=== PATIENT | male | born 1960 | race Caucasian/White ===

== ENCOUNTER 2018-07-03 11:38 | Emergency (ER) | payer OTHER ==
[~2018-07-03] VITALS: Ht 162.6 cm; Wt 77.1 kg
[~2018-07-03 11:38] MED LIST: ATOR20 PO; CLON.5 PO; DIVA250EC PO; FISH1000 PO; INDERAL XL120 MG PO; METPHE10 PO; PARO30 PO; PROP120ER; QUET100 PO; QUET300 PO
[2018-07-03] MEDS ORDERED: ERGO400 (11:48)
[2018-07-03] MEDS ORDERED: FISH OIL 1,0001 EAC1 PO (11:48)
[2018-07-03] MEDS ORDERED: ZOLP10 PO (11:49)
[2018-07-03 12:28] LABS: BASOPHILS ABSOLUTE AUTO 0.01 K/mm3 (0.00-0.23); BASOPHILS PERCENT AUTO 0 % (0-2); EOSINOPHILS ABSOLUTE AUTO 0.13 K/mm3 (0.00-0.68); EOSINOPHILS PERCENT AUTO 3 % (0-6); Hematocrit 38.6 % (37.0-53.0); Hemoglobin 12.9 g/dL (13.5-17.5); IMMATURE GRAN ABSOLUTE AUTO 0.02 K/mm3 (0.00-0.10); IMMATURE GRAN PERCENT AUTO 1 % (0-1); LYMPHOCYTES ABSOLUTE AUTO 1.73 K/mm3 (0.84-5.20); LYMPHOCYTES PERCENT AUTO 43 % (21-46); MONOCYTES ABSOLUTE AUTO 0.62 K/mm3 (0.16-1.47); MONOCYTES PERCENT AUTO 16 % (4-13); Mean Corpuscular HGB 33.3 pg (26.0-34.0); Mean Corpuscular HGB Conc 33.4 g/dL (31.5-36.5); Mean Corpuscular Volume 100 fL (80-100); Mean Platelet Volume 9.6 fL (9.1-12.4); NEUTROPHILS ABSOLUTE AUTO 1.48 K/mm3 (1.96-9.15); NEUTROPHILS PERCENT AUTO 37 % (41-73); Platelet Count 149 K/mm3 (150-400); RDW Coefficient Variation 13.4 % (11.7-14.2); RDW Standard Deviation 49.4 fL (35.1-46.3); Red Blood Cell Count 3.87 M/mm3 (4.30-5.90); White Blood Cell Count 3.99 K/mm3 (4.00-11.30)
[2018-07-03 12:48] LABS: Alanine Aminotransfer (ALT/SGP 29 U/L (12-78); Albumin, Blood 3.2 g/dL (3.4-5.0); Albumin/Globulin Ratio 0.8 (0.8-1.8); Alk Phos 54 U/L (50-136); Anion Gap 4 mmol/L (6-16); Aspartate Aminotrans (AST/SGOT 27 U/L (12-37); Bilirubin, Total 0.3 mg/dL (0.1-1.0); Blood Urea Nitrogen 17 mg/dL (8-24); Bun/Creatinine Ratio 23.3 (12.0-20.0); CO2, Blood 32 mmol/L (21-32); Calcium, Blood 8.6 mg/dL (8.5-10.1); Chloride, Blood 105 mmol/L (98-108); Creatinine, Blood 0.73 mg/dL (0.60-1.20); Globulin, Blood 3.9 g/dL (2.2-4.0); Glomerular Filtration Rate >60 (60-); Glucose, Blood 88 mg/dL (70-99); Potassium, Blood 4.5 mmol/L (3.5-5.5); Sodium, Blood 141 mmol/L (136-145); Total Protein, Blood 7.1 g/dL (6.4-8.2)
[2018-07-03] MEDS ORDERED: Lotrimin Ultra12 GM TOP (15:00)
== END 2018-07-03 15:00 | disposition home or self-care (01) ==
LOC: ER 11:38
PROVIDERS: Emergency Medicine
DX: R26.81 Unsteadiness on feet (principal); R26.2 Difficulty in walking, not elsewhere classified; W19.XXXA Unspecified fall, initial encounter
CPT/HCPCS: 36415; 70450; 80053; 81000; 85025; 99284-25

== ENCOUNTER 2018-10-03 05:45 | Emergency (ER) | payer OTHER ==
[~2018-10-03] VITALS: Ht 165.1 cm; Wt 65.8 kg
[~2018-10-03 05:45] MED LIST changes: +ERGO400; +FISH OIL 1,0001 EAC1 PO; +Lotrimin Ultra12 GM TOP; +ZOLP10 PO
[2018-10-03 06:53] LABS: BASOPHILS ABSOLUTE AUTO 0.02 K/mm3 (0.00-0.23); BASOPHILS PERCENT AUTO 0 % (0-2); EOSINOPHILS PERCENT AUTO 4 % (0-6); Hemoglobin 13.3 g/dL (13.5-17.5); IMMATURE GRAN ABSOLUTE AUTO 0.04 K/mm3 (0.00-0.10); IMMATURE GRAN PERCENT AUTO 1 % (0-1); LYMPHOCYTES ABSOLUTE AUTO 2.39 K/mm3 (0.84-5.20); LYMPHOCYTES PERCENT AUTO 50 % (21-46); MONOCYTES PERCENT AUTO 10 % (4-13); Mean Corpuscular HGB 33.5 pg (26.0-34.0); Mean Corpuscular HGB Conc 32.4 g/dL (31.5-36.5); Mean Corpuscular Volume 103 fL (80-100); NEUTROPHILS ABSOLUTE AUTO 1.67 K/mm3 (1.96-9.15); NEUTROPHILS PERCENT AUTO 35 % (41-73); Platelet Count 155 K/mm3 (150-400); RDW Coefficient Variation 13.6 % (11.7-14.2); RDW Standard Deviation 52.3 fL (35.1-46.3); Red Blood Cell Count 3.97 M/mm3 (4.30-5.90); White Blood Cell Count 4.82 K/mm3 (4.00-11.30)
[2018-10-03 07:00] LABS: Anion Gap 5 mmol/L (6-16); Blood Urea Nitrogen 15 mg/dL (8-24); CO2, Blood 30 mmol/L (21-32); Calcium, Blood 8.8 mg/dL (8.5-10.1); Chloride, Blood 105 mmol/L (98-108); Creatinine, Blood 0.72 mg/dL (0.60-1.20); Glomerular Filtration Rate >60 (60-); Glucose, Blood 91 mg/dL (70-99); Potassium, Blood 4.2 mmol/L (3.5-5.5); Sodium, Blood 140 mmol/L (136-145)
[2018-10-03 07:14] LABS: Valproic Acid 133.5 ug/mL (50.0-100.0)
== END 2018-10-03 09:52 | disposition home or self-care (01) ==
LOC: ER 05:45
PROVIDERS: Emergency Medicine
DX: G40.909 Epilepsy, unspecified, not intractable, without status epilepticus (principal); T42.6X5A Adverse effect of other antiepileptic and sedative-hypnotic drugs, initial encounter; Z79.899 Other long term (current) drug therapy; Z86.73 Personal history of transient ischemic attack (TIA), and cerebral infarction without residual deficits
CPT/HCPCS: 36415; 70450; 71045; 80048; 80164; 85025; 93005; 93010; 99285-25

== ENCOUNTER → 2018-10-28 | Outpatient (CLI) | payer OTHER ==
[~2018-10-28] MED LIST changes: +CEPH500 PO; +Pyridium100 MG PO
[2018-10-28 20:20] LABS: Source, Urine Voided
[2018-10-28 20:27] LABS: Appearance, Urine Bloody (Clear); Bilirubin, Urine Neg (Neg); Blood, Urine 5+ (Neg); Color, Urine Red (P-Yellow); Glucose Qualitative, Urine Neg (Neg); Ketones, Urine 1+ (Neg); Leukocyte Esterase, Urine 1+ (Neg); Nitrite, Urine Neg (Neg); Protein, Urine 4+ (Neg); Specific Gravity, Urine 1.015 (1.003-1.022); Urobilinogen, Urine NORM (Normal)
[2018-10-28 20:34] LABS: Red Blood Cells, Urine TNTC /hpf (0-2)
[2018-10-28 20:35] LABS: Bacteria Not Seen /hpf; Squamous Epithelial Cells Not Seen /hpf (Few)
== END ==
LOC: LAB 19:35 → LAB SHORT 19:35
PROVIDERS: Nurse Practitioner
DX: R35.0 Frequency of micturition (principal)
CPT/HCPCS: 81001

== ENCOUNTER 2018-10-29 11:04 | Emergency (ER) | payer OTHER ==
[~2018-10-29] VITALS: Ht 162.6 cm; Wt 77.1 kg
[~2018-10-29 11:04] MED LIST changes: -CEPH500 PO; -Pyridium100 MG PO
[2018-10-29 13:10] LABS: BASOPHILS ABSOLUTE AUTO 0.02 K/mm3 (0.00-0.23); BASOPHILS PERCENT AUTO 0 % (0-2); EOSINOPHILS ABSOLUTE AUTO 0.13 K/mm3 (0.00-0.68); EOSINOPHILS PERCENT AUTO 1 % (0-6); Hematocrit 49.8 % (37.0-53.0); Hemoglobin 16.8 g/dL (13.5-17.5); IMMATURE GRAN ABSOLUTE AUTO 0.12 K/mm3 (0.00-0.10); IMMATURE GRAN PERCENT AUTO 1 % (0-1); LYMPHOCYTES ABSOLUTE AUTO 2.41 K/mm3 (0.84-5.20); LYMPHOCYTES PERCENT AUTO 23 % (21-46); MONOCYTES ABSOLUTE AUTO 1.38 K/mm3 (0.16-1.47); MONOCYTES PERCENT AUTO 13 % (4-13); Mean Corpuscular HGB 33.1 pg (26.0-34.0); Mean Corpuscular HGB Conc 33.7 g/dL (31.5-36.5); Mean Corpuscular Volume 98 fL (80-100); Mean Platelet Volume 9.2 fL (9.1-12.4); NEUTROPHILS ABSOLUTE AUTO 6.55 K/mm3 (1.96-9.15); NEUTROPHILS PERCENT AUTO 62 % (41-73); Platelet Count 218 K/mm3 (150-400); RDW Coefficient Variation 12.9 % (11.7-14.2); RDW Standard Deviation 46.7 fL (35.1-46.3); Red Blood Cell Count 5.08 M/mm3 (4.30-5.90); White Blood Cell Count 10.61 K/mm3 (4.00-11.30)
[2018-10-29 13:37] LABS: Alanine Aminotransfer (ALT/SGP 17 U/L (12-78); Albumin, Blood 3.1 g/dL (3.4-5.0); Albumin/Globulin Ratio 0.7 (0.8-1.8); Alk Phos 61 U/L (50-136); Anion Gap 5 mmol/L (6-16); Aspartate Aminotrans (AST/SGOT 14 U/L (12-37); Bilirubin, Total 0.4 mg/dL (0.1-1.0); Blood Urea Nitrogen 18 mg/dL (8-24); Bun/Creatinine Ratio 15.1 (12.0-20.0); CO2, Blood 33 mmol/L (21-32); Calcium, Blood 8.8 mg/dL (8.5-10.1); Chloride, Blood 99 mmol/L (98-108); Creatinine, Blood 1.19 mg/dL (0.60-1.20); Globulin, Blood 4.2 g/dL (2.2-4.0); Glomerular Filtration Rate >60 (60-); Glucose, Blood 107 mg/dL (70-99); Potassium, Blood 5.2 mmol/L (3.5-5.5); Sodium, Blood 137 mmol/L (136-145); Total Protein, Blood 7.3 g/dL (6.4-8.2)
[2018-10-29 15:07] LABS: Source, Urine Catheter
[2018-10-29 15:12] LABS: Bilirubin, Urine Neg (Neg); Blood, Urine 5+ (Neg); Glucose Qualitative, Urine Neg (Neg); Ketones, Urine Neg (Neg); Leukocyte Esterase, Urine 1+ (Neg); Nitrite, Urine Neg (Neg); Protein, Urine 4+ (Neg); Specific Gravity, Urine 1.015 (1.003-1.022); Urobilinogen, Urine NORM (Normal)
[2018-10-29 15:16] LABS: Appearance, Urine Bloody (Clear); Color, Urine Red (P-Yellow)
[2018-10-29 15:17] LABS: Red Blood Cells, Urine TNTC /hpf (0-2)
[2018-10-29 15:18] LABS: Bacteria Few /hpf; Squamous Epithelial Cells Not Seen /hpf (Few)
[2018-10-29] MEDS ORDERED: Pyridium100 MG PO (16:19)
== END 2018-10-29 16:35 | disposition home or self-care (01) ==
LOC: ER 11:04
PROVIDERS: Physician Assistant
DX: N39.0 Urinary tract infection, site not specified (principal); Z79.899 Other long term (current) drug therapy
CPT/HCPCS: 36415; 51701; 74176; 80053; 81001; 83690; 85025; 96374; 99284-25; J1885

== ENCOUNTER 2018-12-01 10:12 | Emergency (ER) | payer OTHER ==
[~2018-12-01] VITALS: Ht 152.4 cm; Wt 79.4 kg
[~2018-12-01 10:12] MED LIST changes: +Pyridium100 MG PO
[2018-12-01] MEDS ORDERED: CEPH500 PO (10:52)
== END 2018-12-01 11:05 | disposition home or self-care (01) ==
LOC: ER 10:12
DX: L03.116 Cellulitis of left lower limb (principal)
CPT/HCPCS: 99282

== ENCOUNTER 2019-05-10 06:28 | Day surgery (SDC) | payer OTHER ==
[~2019-05-10 06:28] MED LIST changes: +CEPH500 PO
[2019-05-10] MEDS ORDERED: QUET25 PO (07:19)
== END 2019-05-10 13:11 | disposition home or self-care (01) ==
LOC: ORSCSDS 06:28
PROVIDERS: Otolaryngology
PROC: 0NR507Z Replacement of Right Temporal Bone with Autologous Tissue Substitute, Open Approach (ICD-10-PCS; principal; 2019-05-10 07:30)
DX: H71.01 Cholesteatoma of attic, right ear (principal); H90.6 Mixed conductive and sensorineural hearing loss, bilateral; I10 Essential (primary) hypertension; Z79.899 Other long term (current) drug therapy
CPT/HCPCS: 82947; 88304; J0171; J1100; J2250; J2405; J2704; J3010; J7120

== ENCOUNTER 2019-05-31 06:28 | Day surgery (SDC) | payer OTHER ==
[~2019-05-31] VITALS: Ht 165.1 cm; Wt 69.2 kg
[~2019-05-31 06:28] MED LIST changes: +QUET25 PO
== END 2019-05-31 08:59 | disposition home or self-care (01) ==
LOC: ORSCSDS 06:28
PROVIDERS: Otolaryngology
PROC: 09B58ZZ Excision of Right Middle Ear, Via Natural or Artificial Opening Endoscopic (ICD-10-PCS; principal; 2019-05-31 07:30)
DX: H71.11 Cholesteatoma of tympanum, right ear (principal); I10 Essential (primary) hypertension; Q90.9 Down syndrome, unspecified; Z79.899 Other long term (current) drug therapy
CPT/HCPCS: J1100; J2250; J2405; J2704; J2710; J3010; J3301; J7120

== ENCOUNTER → 2020-08-09 | Outpatient (CLI) | payer OTHER ==
[2020-08-09 16:19] LABS: Source, Urine Voided
[2020-08-09 18:35] LABS: Bilirubin, Urine Neg (Neg); Blood, Urine Neg (Neg); Glucose Qualitative, Urine Neg (Neg); Ketones, Urine Neg (Neg); Leukocyte Esterase, Urine Neg (Neg); Nitrite, Urine Neg (Neg); Protein, Urine Neg (Neg); Urobilinogen, Urine NORM (Normal)
[2020-08-09 18:40] LABS: Appearance, Urine Clear (Clear); Color, Urine Yellow (P-Yellow)
== END ==
LOC: LAB 15:10 → LAB SHORT 15:10
PROVIDERS: Physician Assistant
DX: R32 Unspecified urinary incontinence (principal)
CPT/HCPCS: 81003

== ENCOUNTER 2020-12-15 10:24 | Emergency (ER) | payer OTHER ==
[~2020-12-15] VITALS: Ht 170.2 cm; Wt 68.0 kg
[2020-12-15 10:56] LABS: BASOPHILS ABSOLUTE AUTO 0.01 K/mm3 (0.00-0.23); BASOPHILS PERCENT AUTO 0 % (0-2); EOSINOPHILS ABSOLUTE AUTO 0.01 K/mm3 (0.00-0.68); EOSINOPHILS PERCENT AUTO 0 % (0-6); Hematocrit 41.8 % (37.0-53.0); IMMATURE GRAN ABSOLUTE AUTO 0.01 K/mm3 (0.00-0.10); IMMATURE GRAN PERCENT AUTO 0 % (0-1); LYMPHOCYTES ABSOLUTE AUTO 1.15 K/mm3 (0.84-5.20); LYMPHOCYTES PERCENT AUTO 25 % (21-46); MONOCYTES ABSOLUTE AUTO 1.19 K/mm3 (0.16-1.47); MONOCYTES PERCENT AUTO 26 % (4-13); Mean Corpuscular HGB 34.1 pg (26.0-34.0); Mean Corpuscular HGB Conc 33.5 g/dL (31.5-36.5); Mean Corpuscular Volume 102 fL (80-100); Mean Platelet Volume 9.4 fL (9.1-12.4); NEUTROPHILS ABSOLUTE AUTO 2.23 K/mm3 (1.96-9.15); NEUTROPHILS PERCENT AUTO 49 % (41-73); Platelet Count 164 K/mm3 (150-400); RDW Standard Deviation 53.1 fL (35.1-46.3)
[2020-12-15 11:14] LABS: Alanine Aminotransfer (ALT/SGP 17 U/L (12-78); Albumin, Blood 2.9 g/dL (3.4-5.0); Albumin/Globulin Ratio 0.7 (0.8-1.8); Alk Phos 55 U/L (50-136); Anion Gap 6 mmol/L (6-16); Aspartate Aminotrans (AST/SGOT 20 U/L (12-37); Bilirubin, Total 0.6 mg/dL (0.1-1.0); Blood Urea Nitrogen 18 mg/dL (8-24); Bun/Creatinine Ratio 19.6 (12.0-20.0); CO2, Blood 27 mmol/L (21-32); Calcium, Blood 8.8 mg/dL (8.5-10.1); Chloride, Blood 104 mmol/L (98-108); Creatinine, Blood 0.92 mg/dL (0.60-1.20); Globulin, Blood 4.2 g/dL (2.2-4.0); Glomerular Filtration Rate >60 (60-); Glucose, Blood 100 mg/dL (70-99); Potassium, Blood 4.4 mmol/L (3.5-5.5); Sodium, Blood 137 mmol/L (136-145); Total Protein, Blood 7.1 g/dL (6.4-8.2); Troponin I <0.015 ng/mL (0.000-0.040)
[2020-12-15] MEDS ORDERED: PROP120ER PO ×2 (12:03→12:14)
[2020-12-15] MEDS ORDERED: FISH OIL 1,2001 EAC7 PO (12:03)
[2020-12-15] MEDS ORDERED: DIVA250ER PO (12:03)
[2020-12-15] MEDS ORDERED: FISH OIL-VIT D1 EACH PO (12:15)
[2020-12-15] MEDS ORDERED: DIVA250EC PO (12:18)
[2020-12-15] MEDS ORDERED: ATOR20 PO (12:19)
[2020-12-15] MEDS ORDERED: PARO30 PO (12:19)
[2020-12-15] MEDS ORDERED: CLON.5 PO (12:20)
[2020-12-15] MEDS ORDERED: METPHE20CR PO (12:20)
[2020-12-15] MEDS ORDERED: ZOLP10 PO (12:21)
[2020-12-15] MEDS ORDERED: THERA-D2000 UNIT PO (12:21)
[2020-12-15] MEDS ORDERED: QUET300 PO (12:21)
[2020-12-15] MEDS ORDERED: Seroquel Xr50 MG PO (12:23)
[2020-12-15] MEDS ORDERED: B-12500 MC2 PO (12:23)
[2020-12-16] MEDS ORDERED: VALP250 PO (13:38)
[2021-02-15] MEDS ORDERED: CEFP200 PO (19:59)
== END 2020-12-15 13:05 | disposition home or self-care (01) ==
LOC: ER 10:24
PROVIDERS: Emergency Medicine
DX: T17.900A Unspecified foreign body in respiratory tract, part unspecified causing asphyxiation, initial encounter (principal); Z79.899 Other long term (current) drug therapy
CPT/HCPCS: 71045; 80053; 83880; 84484; 85025; 87070; 87205; 93005; 93010; 99285-25

== ENCOUNTER 2020-12-15 20:41 | Inpatient (IN) | payer OTHER, MEDICARE ==
[~2020-12-15] VITALS: Ht 167.6 cm; Wt 68.3 kg
[~2020-12-15 20:41] MED LIST changes: +B-12500 MC2 PO; +DIVA250ER PO; +FISH OIL 1,2001 EAC7 PO; +FISH OIL-VIT D1 EACH PO; +METPHE20CR PO; +PROP120ER PO; +Seroquel Xr50 MG PO; +THERA-D2000 UNIT PO
[2020-12-15 21:12] LABS: BASOPHILS ABSOLUTE AUTO 0.01 K/mm3 (0.00-0.23); BASOPHILS PERCENT AUTO 0 % (0-2); EOSINOPHILS ABSOLUTE AUTO 0.01 K/mm3 (0.00-0.68); EOSINOPHILS PERCENT AUTO 0 % (0-6); Hematocrit 35.9 % (37.0-53.0); Hemoglobin 12.2 g/dL (13.5-17.5); IMMATURE GRAN ABSOLUTE AUTO 0.04 K/mm3 (0.00-0.10); IMMATURE GRAN PERCENT AUTO 1 % (0-1); LYMPHOCYTES ABSOLUTE AUTO 1.91 K/mm3 (0.84-5.20); LYMPHOCYTES PERCENT AUTO 27 % (21-46); MONOCYTES PERCENT AUTO 26 % (4-13); Mean Corpuscular HGB 34.3 pg (26.0-34.0); Mean Corpuscular Volume 101 fL (80-100); Mean Platelet Volume 10.5 fL (9.1-12.4); NEUTROPHILS ABSOLUTE AUTO 3.26 K/mm3 (1.96-9.15); NEUTROPHILS PERCENT AUTO 46 % (41-73); Platelet Count 162 K/mm3 (150-400); RDW Coefficient Variation 13.8 % (11.7-14.2); RDW Standard Deviation 51.3 fL (35.1-46.3); Red Blood Cell Count 3.56 M/mm3 (4.30-5.90); White Blood Cell Count 7.03 K/mm3 (4.00-11.30)
[2020-12-15 21:26] LABS: PCO2 Arterial 45.2 mmHg (35-45); PO2 Arterial 53.5 mmHg (80-100); pH Blood Arterial 7.41 (7.35-7.45)
[2020-12-15 21:57] LABS: Source, Urine Catheter
[2020-12-15 21:58] LABS: Bilirubin, Urine Neg (Neg); Blood, Urine 2+ (Neg); Glucose Qualitative, Urine Neg (Neg); Ketones, Urine Neg (Neg); Leukocyte Esterase, Urine 1+ (Neg); Nitrite, Urine Neg (Neg); Protein, Urine Neg (Neg); Urobilinogen, Urine 2+ (Normal)
[2020-12-15 21:59] LABS: Troponin I <0.015 ng/mL (0.000-0.040)
[2020-12-15 22:00] LABS: Alanine Aminotransfer (ALT/SGP 18 U/L (12-78); Albumin, Blood 2.6 g/dL (3.4-5.0); Albumin/Globulin Ratio 0.6 (0.8-1.8); Alk Phos 47 U/L (50-136); Anion Gap 5 mmol/L (6-16); Aspartate Aminotrans (AST/SGOT 18 U/L (12-37); Bilirubin, Total 0.5 mg/dL (0.1-1.0); Blood Urea Nitrogen 20 mg/dL (8-24); Bun/Creatinine Ratio 24.7 (12.0-20.0); CO2, Blood 28 mmol/L (21-32); Calcium, Blood 8.8 mg/dL (8.5-10.1); Chloride, Blood 105 mmol/L (98-108); Creatinine, Blood 0.81 mg/dL (0.60-1.20); Glomerular Filtration Rate >60 (60-); Glucose, Blood 91 mg/dL (70-99); Potassium, Blood 3.8 mmol/L (3.5-5.5); Sodium, Blood 138 mmol/L (136-145); Total Protein, Blood 6.6 g/dL (6.4-8.2)
[2020-12-15 22:11] LABS: Appearance, Urine Clear (Clear); Bacteria Few /hpf; Color, Urine Yellow (P-Yellow); Red Blood Cells, Urine Rare /hpf (0-2); Squamous Epithelial Cells Not Seen /hpf (Few); Transitional Epithelial Cells Few /hpf (0-Rare); White Blood Cells, Urine 0-2 /hpf (0-5)
[2020-12-15 22:17] LABS: Influenza A, PCR NEGATIVE (NEGATIVE); Influenza B, PCR NEGATIVE (NEGATIVE); Resp Syncytial Virus, PCR NEGATIVE (NEGATIVE); SARS-Cov-2 (COVID-19) PCR, MMC NEGATIVE (NEGATIVE)
--- NOTE | 2020-12-16 07:38 | NUR ---
PT TO ICU 10 VIA [facility] WITH ED RN. PT AROUSES TO VERBAL STIMULI, FOLLOWS SOME COMMANDS, L EYE AMBLYOPIA WITH NO PUPILARY REACTION NOTED, R EYE WNL. PT RESISTANT TO NURSING CARE, EASILY AGITATED. PT CAME TO ICU ON 15L PER NRB WITH O2 SATURATIONS> 90%. O2 SATURATIONS BEGAN TO DECLINE TO THE 70'S, PT PLACED ON AIRVO WITHOUT IMPROVEMENT. CALL PLACED TO DR GONZALEZ AND ORDER PLACED FOR BIPAP AND PRECEDEX IF NEEDED. PT TOLERATED BIPAP WELL, O2 SATURATIONS IMPROVED TO >90% FOR SHORT PERIOD OF TIME AND PT BEGAN TO DESAT. CALL PLACED TO DR GONZALEZ AND PT INTUBATED @ 0156, MEDICATED WITH 15mg ETOMIDATE AND 100mg SUCCINYLCHOLINE FOR INTUBATION, PROPOFOL GTT INITIATED AND LEVOPHED STARTED TO MAINTAIN MAPS> 65 (LEVO CURRENTLY ON SB, SEE FLOWSHEET). VENT SET TO AC 16/450 PEEP 10 FIO2 100% PT WITH COPIOUS AMOUNTS OF BLOODY SECRETIONS FROM ETT. OG PLACED, VERIFIED WITH AUSCULTATION AND XRAY. CENTRAL LINE PLACED BY DR GONZALEZ @ APPROX 0215, XRAY READ AND DR GONZALEZ OK'D USE OF CL. QUIÑONES IN PLACE WITH APPROX 2L OF BRIGHT RED OUTPUT. REPORT GIVEN TO LIVAN MURILLO.
--- NOTE | 2020-12-16 07:45 | NUR ---
ASSUMED CARE BEDISDE REPORT FROM TOD MURILLO. PT INTUBATED AND SEDATED. VENT SETTINGS AC 16/450/10/60%. PROPOFOL GTT 30 MCG/KG/MIN. PT RESPONSES TO VERBAL STIMULI, DOES NOT FOLLOW DIRECTIONS. GRIMACES c CARE. PULLS ON RESTRAINTS WHEN STIMULATED. APPEARS TO REST WHEN UNDISTURBED. LUNGS CLEAR THROUGHOUT. MODERATE AMOUNT OF PINK THIN SECRETIONS THROUGH ETT. ABD ROUND, SOFT, BT X 4. PT GRIMACES c PALPATION TO ENTIRE BODY. QUIÑONES PATENT, DRAINING RED URINE c CLOTS TO GRAVITY. DR GANT INSTRUCTED TO HOLD LOVENOX. DR LING AWARE. REDNESS AND WARMTH NOTED TO RLE. VSS. CENTRAL LINE TO RIJ. DRESSING C/D/I. WILL CONTINUE TO MONITOR.
[2020-12-16 09:49] LABS: BASOPHILS ABSOLUTE AUTO 0.01 K/mm3 (0.00-0.23); BASOPHILS PERCENT AUTO 0 % (0-2); EOSINOPHILS ABSOLUTE AUTO 0.05 K/mm3 (0.00-0.68); EOSINOPHILS PERCENT AUTO 1 % (0-6); Hemoglobin 13.4 g/dL (13.5-17.5); IMMATURE GRAN ABSOLUTE AUTO 0.01 K/mm3 (0.00-0.10); IMMATURE GRAN PERCENT AUTO 0 % (0-1); LYMPHOCYTES PERCENT AUTO 29 % (21-46); MONOCYTES ABSOLUTE AUTO 0.85 K/mm3 (0.16-1.47); MONOCYTES PERCENT AUTO 18 % (4-13); Mean Corpuscular HGB 33.8 pg (26.0-34.0); Mean Corpuscular HGB Conc 34.4 g/dL (31.5-36.5); Mean Corpuscular Volume 99 fL (80-100); Mean Platelet Volume 9.5 fL (9.1-12.4); NEUTROPHILS ABSOLUTE AUTO 2.45 K/mm3 (1.96-9.15); NEUTROPHILS PERCENT AUTO 51 % (41-73); Platelet Count 139 K/mm3 (150-400); RDW Coefficient Variation 13.6 % (11.7-14.2); RDW Standard Deviation 50.2 fL (35.1-46.3); Red Blood Cell Count 3.96 M/mm3 (4.30-5.90); White Blood Cell Count 4.77 K/mm3 (4.00-11.30)
[2020-12-16 11:04] LABS: Alanine Aminotransfer (ALT/SGP 12 U/L (12-78); Albumin/Globulin Ratio 0.6 (0.8-1.8); Alk Phos 39 U/L (50-136); Anion Gap 5 mmol/L (6-16); Aspartate Aminotrans (AST/SGOT 18 U/L (12-37); Bilirubin, Total 0.6 mg/dL (0.1-1.0); Blood Urea Nitrogen 19 mg/dL (8-24); Bun/Creatinine Ratio 31.3 (12.0-20.0); CO2, Blood 25 mmol/L (21-32); Calcium, Blood 7.9 mg/dL (8.5-10.1); Chloride, Blood 110 mmol/L (98-108); Creatinine, Blood 0.61 mg/dL (0.60-1.20); Globulin, Blood 3.5 g/dL (2.2-4.0); Glomerular Filtration Rate >60 (60-); Glucose, Blood 82 mg/dL (70-99); Potassium, Blood 3.4 mmol/L (3.5-5.5); Sodium, Blood 140 mmol/L (136-145); Total Protein, Blood 5.5 g/dL (6.4-8.2)
[2020-12-16] MEDS ORDERED: VALP250 PO (13:38)
--- NOTE | 2020-12-16 18:40 | NUR ---
SHIFT SUMMARY PT REMAINS INTUBATED AND SEDATED. VENT SETTINGS AC 16/450/5/30%. PRECEDEX STARTED THIS SHIFT, PROPOFOL GTT. PER DR LING, GOAL FOR PRECEDEX ONLY. LUNGS CLEAR. DECREASED SECRETIONS THROUGH ETT THIS SHIFT. PINK, THIN. TUBE FEEDINGS STARTED, TOLERATING WELL, NO RESIDUALS. QUIÑONES PATENT, CONTINUED TO DRAIN RED URINE c CLOTS, IRRIGATED. CURRENTLY PINK. DR LING AWARE. LEVOPHED GTT STARTED FOR MAP>65. INFUSING AT 2 MCG/MIN. WILL CONTINUE TO MONITOR UNTIL REPORT TO ONCOMING NURSE.
[2020-12-16 18:43] LABS: BASOPHILS ABSOLUTE AUTO 0.01 K/mm3 (0.00-0.23); BASOPHILS PERCENT AUTO 0 % (0-2); EOSINOPHILS ABSOLUTE AUTO 0.03 K/mm3 (0.00-0.68); EOSINOPHILS PERCENT AUTO 1 % (0-6); Hematocrit 39.9 % (37.0-53.0); Hemoglobin 13.9 g/dL (13.5-17.5); IMMATURE GRAN ABSOLUTE AUTO 0.06 K/mm3 (0.00-0.10); IMMATURE GRAN PERCENT AUTO 1 % (0-1); LYMPHOCYTES ABSOLUTE AUTO 1.42 K/mm3 (0.84-5.20); LYMPHOCYTES PERCENT AUTO 23 % (21-46); MONOCYTES ABSOLUTE AUTO 0.97 K/mm3 (0.16-1.47); MONOCYTES PERCENT AUTO 16 % (4-13); Mean Corpuscular HGB 34.3 pg (26.0-34.0); Mean Corpuscular HGB Conc 34.8 g/dL (31.5-36.5); Mean Corpuscular Volume 99 fL (80-100); Mean Platelet Volume 9.8 fL (9.1-12.4); NEUTROPHILS ABSOLUTE AUTO 3.66 K/mm3 (1.96-9.15); NEUTROPHILS PERCENT AUTO 59 % (41-73); Platelet Count 172 K/mm3 (150-400); RDW Coefficient Variation 13.7 % (11.7-14.2); RDW Standard Deviation 50.1 fL (35.1-46.3); Red Blood Cell Count 4.05 M/mm3 (4.30-5.90); White Blood Cell Count 6.15 K/mm3 (4.00-11.30)
[2020-12-16 18:57] LABS: International Normalized Ratio 1.04; Prothrombin Time Results 11.1 Sec (9.7-11.5)
[2020-12-16 19:07] LABS: Anion Gap 5 mmol/L (6-16); Blood Urea Nitrogen 19 mg/dL (8-24); Bun/Creatinine Ratio 26.8 (12.0-20.0); CO2, Blood 24 mmol/L (21-32); Calcium, Blood 8.2 mg/dL (8.5-10.1); Chloride, Blood 111 mmol/L (98-108); Creatinine, Blood 0.71 mg/dL (0.60-1.20); Glomerular Filtration Rate >60 (60-); Glucose, Blood 116 mg/dL (70-99); Potassium, Blood 4.3 mmol/L (3.5-5.5); Sodium, Blood 140 mmol/L (136-145)
--- NOTE | 2020-12-16 19:30 | NUR ---
PATIENT INTUBATED AND SEDATED WITH PROPOFOL 20 MCG AND PRECEDEX 0.3 MCG. LEVOPHED 4 MCG TITRATED FOR HYPOTENSION. ETT IN PLACE WITH VENT AC16, TV 450, PEEP 5 FIO2 30%. OG IN PLACE WITH VITAL HP FEEDING AT 25 CC/HR. BILAT WRIST RESTRAINTS IN PLACE TO PREVENT ACCIDENTAL EXTUBATION DUE TO UNPREDICTABLE SEDATION AND BEHAVIOR.
--- NOTE | 2020-12-16 20:54 | NUR ---
PATIENT VERY RESTLESS AND SHACKING HEAD WITH ORAL CARE AND REPOSITIONING, PROPOFOL INCREASED TO HELP PATIENT GLADIS ETT.
[2020-12-17] MEDS ORDERED: VITAMIN D31000 UNI1 PO (03:40)
[2020-12-17] MEDS ORDERED: MIRALAX17 GM PO (03:41)
[2020-12-17 04:16] LABS: BASOPHILS ABSOLUTE AUTO 0.01 K/mm3 (0.00-0.23); BASOPHILS PERCENT AUTO 0 % (0-2); EOSINOPHILS ABSOLUTE AUTO 0.13 K/mm3 (0.00-0.68); EOSINOPHILS PERCENT AUTO 2 % (0-6); Hematocrit 35.2 % (37.0-53.0); Hemoglobin 12.4 g/dL (13.5-17.5); IMMATURE GRAN ABSOLUTE AUTO 0.04 K/mm3 (0.00-0.10); IMMATURE GRAN PERCENT AUTO 1 % (0-1); LYMPHOCYTES ABSOLUTE AUTO 2.05 K/mm3 (0.84-5.20); LYMPHOCYTES PERCENT AUTO 34 % (21-46); MONOCYTES ABSOLUTE AUTO 0.84 K/mm3 (0.16-1.47); MONOCYTES PERCENT AUTO 14 % (4-13); Mean Corpuscular HGB 34.5 pg (26.0-34.0); Mean Corpuscular HGB Conc 35.2 g/dL (31.5-36.5); Mean Corpuscular Volume 98 fL (80-100); Mean Platelet Volume 9.8 fL (9.1-12.4); NEUTROPHILS ABSOLUTE AUTO 3.03 K/mm3 (1.96-9.15); NEUTROPHILS PERCENT AUTO 50 % (41-73); Platelet Count 142 K/mm3 (150-400); RDW Coefficient Variation 13.5 % (11.7-14.2); RDW Standard Deviation 49.1 fL (35.1-46.3); Red Blood Cell Count 3.59 M/mm3 (4.30-5.90)
[2020-12-17 04:44] LABS: Anion Gap 7 mmol/L (6-16); Blood Urea Nitrogen 23 mg/dL (8-24); Bun/Creatinine Ratio 31.5 (12.0-20.0); CO2, Blood 24 mmol/L (21-32); Calcium, Blood 7.9 mg/dL (8.5-10.1); Chloride, Blood 110 mmol/L (98-108); Creatinine, Blood 0.73 mg/dL (0.60-1.20); Glomerular Filtration Rate >60 (60-); Glucose, Blood 130 mg/dL (70-99); Magnesium, Blood 1.9 mg/dL (1.6-2.4); Phosphorus, Blood 2.4 mg/dL (2.5-4.9); Potassium, Blood 3.5 mmol/L (3.5-5.5); Sodium, Blood 141 mmol/L (136-145)
--- NOTE | 2020-12-17 05:55 | NUR ---
SUMMARY PATIENT REMAINS INTUBATED AND SEDATED, FOR WEAN PATIENT AWAKENS, APPEARS TO HAVE EYE CONTACT, BUT NOT FOLLOWING DIRECTIONS. SEE RT CHARTING FOR WEAN. AFTER WEAN, PROPOFOL BACK ON AT 25 MCG, PRECEDEX 0.2 MCG FOR SEDATION. LEVOPHED TITRATED T/O NIGHT, PATIENT BP VERY SENSITIVE TO TITRATIONS, SEE FLOW SHEET LEVOPHED NOW AT 1.5 MCG. OG WITH TUBE FEEDING WITH VITAL HP, AT GOAL RATE OF 45 CC/HR WITH MIN RESIDUALS T/O NIGHT. QUIÑONES CONTINUES TO DRAIN BLOODY URINE WITH DARK RED CLOTS.
--- NOTE | 2020-12-17 08:30 | NUR ---
ASSUMED CARE / DR GANT: REPORT RECEIVED FROM DEXTER Ellsworth RN. ASSUMED CARE OF THIS PT AT APPROX 0700. ON ASSESSMENT, THE PT IS LIGHTLY SEDATED W/ PROPOFOL AT 25 MCG/KG/MIN & PRECEDEX AT 0.2 MCG/KG/HR. HE WITHDRAWS ALL EXTREMITIIES FROM PAINFUL STIMULUS BUT IS NOT ABLE TO FOLLOW DIRECTIONS. UNSURE OF PT's BASELINE MENTATION/ FUNCTIONING R/T HX DOWNS SYNDROME. LS COARSE IN DAVIE, DIM IN BASES. PT ON VENT W/ SETTINGS AC 16/450/5/30% W/ O2 SATS > 92%. MONITOR SHOWS SB-SR W/ HR 50-60s, LEVOPHED INFUSING AT 1.5 MCG/MIN FOR HYPOTENSION - SEE FLOWSHEET FOR TITRATION OF ALL DRIPS. OGT IN PLACE W/ TUBE FEEDS OF VHP INFUSING AT GOAL RATE OF 45 ML/HR W/ LOW RESIDUALS NOTED - SEE I&O. QUIÑONES PATENT/ DRAINING RED/ PINK URINE W/ COPIOUS AMNTS CLOTS NOTED. SKIN OVERALL CDI. PROVIDER AT BEDSIDE TO EVAL PT THIS AM. NO CHANGES, CONTINUE POC PER SHOT PACKER SERVICE. WILL CONTINUE TO MONITOR & UPDATE NEEDED.
--- NOTE | 2020-12-17 09:25 | NUR ---
DR LING: PROVIDER AT BEDSIDE TO EVAL PT. HE HAS PLACED PROPOFOL DRIP ON STANDBY FOR SEDATION VACATION & IS HOPEFUL TO EXTUBATE PT THIS AM. VICTORIA HELD THIS AM PER CJ R/T CLOTTING/ ESDRAS RED BLOOD NOTED IN URINE, PROVIDER NOTIFIED & STS THAT UROLOGY MAY NEED TO BE CONSULTED IF BLEEDING CONTINUES.
--- NOTE | 2020-12-17 10:31 | NUR ---
UPDATE: DR LING HAS ORDERED A CT UROGRAM & FEELS THAT THE BEST IMAGE WILL BE OBTAINED WHILE PT IS SEDATED W/ PROPOFOL. SEDATION HAS BEEN RESUMED & VENT SETTINGS HAVE BEEN CHANGED BACK TO PRIOR AC SETTINGS OF 16/450/5/30%. THE PT IS AGAIN RESTING QUIETLY. THIS RN HAS SPOKEN TO anywayanyday, & THE PLAN IS FOR CT UROGRAM TO BE COMPLETED AT 1100. HOPE Siddiqui RT, HAS BEEN CONTACTED & WILL BE PRESENT AT BEDSIDE SHORTLY FOR PT TRANSPORT TO[facility]
--- NOTE | 2020-12-17 12:48 | NUR ---
IMAGING / UPDATE: PT TO CT UROGRAM W/ THIS RN, HOPE Siddiqui RT, & ALDO, IMAGING TRANSPORTER. IMAGING COMPLETED AT APPROX 1140 & PT BACK TO ROOM. HE HAS TOLERATED THIS WELL. ONCE BACK IN ROOM, QUIÑONES NOTED TO BE LEAKING SLIGHTLY AROUND MEATUS & HAS BEEN IRRIAGATED W/ STERILE WATER UNTIL CLOTS PASSED & URINE FLOWING.
--- NOTE | 2020-12-17 14:19 | NUR ---
EXTUBATED PT TO ROOM AIR @1412 WITH RT HOPE. SPO2 MAINTAINED ON ROOM AIR >93%. PT ABLE TO VERBALIZE WITH HORSE SOUNDING VOICE. OG TUBE DISCONTINUED AT TIME OF EXTUBATION. PT RESTING IN BED, CALL LIGHT IN REACH. BED ALARM APPLIED.
[2020-12-17 18:20] LABS: Source, Urine Catheter
[2020-12-17 18:24] LABS: Appearance, Urine Cloudy (Clear); Bilirubin, Urine Neg (Neg); Blood, Urine 5+ (Neg); Color, Urine Red (P-Yellow); Glucose Qualitative, Urine Neg (Neg); Ketones, Urine Neg (Neg); Leukocyte Esterase, Urine 2+ (Neg); Nitrite, Urine Neg (Neg); Protein, Urine 4+ (Neg); Specific Gravity, Urine 1.015 (1.003-1.022); Urobilinogen, Urine NORM (Normal)
[2020-12-17 18:33] LABS: Bacteria Few /hpf; Red Blood Cells, Urine TNTC /hpf (0-2); Squamous Epithelial Cells Rare /hpf (Few)
--- NOTE | 2020-12-17 19:35 | NUR ---
SHIFT SUMMARY: NO ACUTE CHANGES SINCE PRIOR UPDATES. PT IS [place] BUT RELATIVELY EASY TO COMMUNICATE WITH. HE USES SMALL PHRASES & ASKS QUESTIONS APPROPRIATELY. LS ARE DIM IN BASES, PT W/ OCCASIONAL MOIST COUGH. O2 SATS > 92% ON RA. MONITOR SHOWS SR W/ HR 70-80s, BP STABLE W/ LEVOPHED OFF SINCE 1546. PT IS HAVING NUMEROUS BROWN LIQUID STLS, ASKS FOR BEDPAN AT TIMES. QUIÑONES REMOVED & LARGER, 16F QUIÑONES HAS BEEN PLACED FOR COPIOUS AMNTS OF BLOOD/CLOTTING NOTED IN URINE & CAUSING OCCLUSION OF SMALLER 14F QUIÑONES THAT WAS IN PLACE. URINE REMAINS PINK/RED IN COLOR. SKIN OVERLL CDI. Q2H REPOSITIONING TO MAINTAIN SKIN INTEGRITY. REPORT GIVEN TO DEXTER Ellsworth RN TO ASSUME CARE.
--- NOTE | 2020-12-17 20:35 | NUR ---
PATIENT AWAKE, SIMPLE CONVERSATION, FOLLOWING SIMPLE DIRECTIONS. LUNG SOUNDS CLEAR AND ON RA. QUIÑONES DRAINING DARK RED URINE WITH CLOTS. INCONT OF LARGE LIQUID BROWN STOOL. HOLDING HIS LEGS VERY STIFF WITH REPOSITIONING IN BED. NEEDING FREQUENT REMINDING TO KEEP LINES AND CORDS IN PLACE. PRECEDEX AT 0.5 MCG TO HELP PATIENT REMAIN CALM. LEVOPHED REMAINS OFF.
[2020-12-18 05:47] LABS: BASOPHILS ABSOLUTE AUTO 0.02 K/mm3 (0.00-0.23); BASOPHILS PERCENT AUTO 0 % (0-2); EOSINOPHILS ABSOLUTE AUTO 0.28 K/mm3 (0.00-0.68); EOSINOPHILS PERCENT AUTO 5 % (0-6); Hematocrit 34.3 % (37.0-53.0); Hemoglobin 11.7 g/dL (13.5-17.5); IMMATURE GRAN ABSOLUTE AUTO 0.07 K/mm3 (0.00-0.10); IMMATURE GRAN PERCENT AUTO 1 % (0-1); LYMPHOCYTES ABSOLUTE AUTO 1.68 K/mm3 (0.84-5.20); LYMPHOCYTES PERCENT AUTO 29 % (21-46); MONOCYTES ABSOLUTE AUTO 0.67 K/mm3 (0.16-1.47); MONOCYTES PERCENT AUTO 11 % (4-13); Mean Corpuscular HGB 33.4 pg (26.0-34.0); Mean Corpuscular HGB Conc 34.1 g/dL (31.5-36.5); Mean Corpuscular Volume 98 fL (80-100); Mean Platelet Volume 9.7 fL (9.1-12.4); NEUTROPHILS ABSOLUTE AUTO 3.14 K/mm3 (1.96-9.15); NEUTROPHILS PERCENT AUTO 54 % (41-73); Platelet Count 158 K/mm3 (150-400); RDW Coefficient Variation 13.6 % (11.7-14.2); RDW Standard Deviation 49.3 fL (35.1-46.3); White Blood Cell Count 5.86 K/mm3 (4.00-11.30)
[2020-12-18 06:02] LABS: Anion Gap 7 mmol/L (6-16); Blood Urea Nitrogen 13 mg/dL (8-24); Bun/Creatinine Ratio 19.6 (12.0-20.0); CO2, Blood 25 mmol/L (21-32); Calcium, Blood 8.3 mg/dL (8.5-10.1); Chloride, Blood 110 mmol/L (98-108); Creatinine, Blood 0.66 mg/dL (0.60-1.20); Glomerular Filtration Rate >60 (60-); Glucose, Blood 82 mg/dL (70-99); Magnesium, Blood 1.9 mg/dL (1.6-2.4); Phosphorus, Blood 3.4 mg/dL (2.5-4.9); Potassium, Blood 3.9 mmol/L (3.5-5.5); Sodium, Blood 142 mmol/L (136-145)
--- NOTE | 2020-12-18 06:57 | NUR ---
SUMMARY PATIENT AWAKE ALL NIGHT. CONFUSED SPEECH, BUT COOPERATIVE, FOLLOWING SIMPLE DIRECTIONS. QUIÑONES DRAINING DARK RED URINE WITH CLOTS, IRRIGATED QUIÑONES WITH 60 CC WATER ONCE DURING THE NIGHT.
--- NOTE | 2020-12-18 08:00 | NUR ---
PT IS AWAKE AND ALERT. HX-DOWN'S SYNDROME AND INTRACRANIAL HEMORRAGE IN THE PAST. PT ROPER, BUT VERY STIFF AND WEAK. FOLLOWS COMMANDS FOR THE MOST PART AND ATTEMPTS TO VE COOPERATIVE. PT OOB TO CHAIR WITH 2 PERSON ASSIST WITH WALKER. LUNGS SLIGHTLY DIMINISHED IN THE BASES. SATS> 93% ON RA. OCCASIONAL, MOIST, NONOPRODUCTIVE COUGH NOTED. PT ABLE TO TAKE PO MEDS WITH SIP OF WATER WITHOUT DIFFLICULTY. QUIÑONES CONTINUES WTIH HEMATURIA AND A FEW SMALL CLOTS. WILL IRRIGATE PRN. INCONTINENT OF MODERATE AMOUNT OF BROWN, LIQUID STOOL-MONTRELL AND CATH CARE COMPLETED PRIOR TO PLACING PT IN THE CHAIR.
--- NOTE | 2020-12-18 09:25 | NUR ---
RADIOLOGY CONTACTED REQUESTING THAT IMAGES BE SENT TO [facility] (CT ABDOMEN/PELVIS.) PER DR. LING REQUEST.
--- NOTE | 2020-12-18 09:53 | NUR ---
ASSISTED PT BACK TO BED. PT INCONTINENT OF MEDIUM BROWN, LIQUID STOOL. MONTRELL CARE AND ATTENDS CHANGED. LINEN CHANGE ALSO COMPLETED. ONCE BACK IN BED, RIJ CENTRAL LINE REMOVED AND CLEAR OCCLUSIVE DRESSING PLACED. PT TOLERATED WELL OVERALL. NO BLEEDING OR HEMATOMA.
--- NOTE | 2020-12-18 11:34 | NUR ---
AWAITING ST AND OT EVALUATION. PT GIVEN SIPS OF WATER FREQUENTLY AND NO SIGNS OF ASPIRATION. HOWEVER, WILL AWAIT ST EVAL TO INITIATE DIET. QUIÑONES CONTINUES WITH HEMATURIA/SOME CLOTS-IRRIGATED X 2 WITH 30 CC STERILE WATER. PT WILL BE DISCHARED WITH QUIÑONES IN PLACE AND HAVE OUTPATIENT UROLOGY EVALUATION-PER DR. LING.
--- NOTE | 2020-12-18 12:50 | NUR ---
NO ACUTE CHANGES. KUSHAL FROM [facility] HERE TO DO EVAL. REPORTS PHONED TO CHIDI CARRANZA IN PREP TO TRANSFER PT TO ROOM 360. PT WILL TRANSFER AFTER SWALLOW EVALUATION DONE.
--- NOTE | 2020-12-18 15:00 | NUR ---
PT TO REMAIN IN ICU 10, UNTIL A SPECIAL CARE UNIT BED AVAILABLE. WHEN SITTING UP IN CHAIR, AND IN BED, PT NOTED TO LIST TO THE LEFT SIDE. PT GIVEN BED BATH AND PARTIAL LINEN CHANGE COMPLETED HE WAS INCONTINENT OF MEDIUM SIZED LIQUID STOOL. VSS. NO NOTED SOB. SWALLOW EVAL HAS BEEN COMPLETED AND DIET ORDERED. QUIÑONES CONTINUES WITH HEMATURIA AND MORE CLOTS THIS AFTERNOON. IRRIGATED WITH A TOTAL OF 100 CC STERILE WATER.
--- NOTE | 2020-12-18 15:12 | NUR ---
DURING PT BATH, NOTED NEW RASH TO ARMS, TORSO, AND THIGHS-FIRST DOSE OF ROCEPHIN GIVEN EARLIER TODAY-SEE EMAR.
--- NOTE | 2020-12-18 15:20 | NUR ---
DR. LING MADE AWARE OF RASH TO TORSO, ARMS, AND THIGHS. NURSE NOTIFY-ORDER TO MONITOR PT WITH NEXT DOSE OF IV ROCEPHIN FOR WORSENING RASH, SOB, WZ, ITCHING ETC.
--- NOTE | 2020-12-18 17:45 | NUR ---
PT AUNT IN FOR VISIT. SHE IS NEXT OF KIN, BUT "NO LONGER" THE DECISION MAKER FOR PT. ACCORDING TO HER, "THE STATE/CUT PRESS OPERATOR" MAKES DECISIONS FOR PT. PT PT AUNT FEELS THAT PT IS MORE CONFUSED THAN NORMAL. SHE STATES THAT HE IS USUALLY ABLE TO RECALL HER NAME AND CARRY ON A SOMEWHAT NORMAL CONVERSATION DESPITE HIS DEVELOPMENTAL DELAY. APPETITE POOR. PT REFUSED DINNER, BUT DID EAT A TOTAL OF 3 PUDDINGS TODAY AND DRINKS SIPS OF LIQUIDS WHENEVER OFFER. PT WILL STATE "THAT'S ENOUGH."
[2020-12-18 20:04] LABS: C DIFFICILE DNA NEGATIVE (Negative)
--- NOTE | 2020-12-18 21:48 | NUR ---
ASSUMPTION OF CARE PT RESTING IN BED, SMILES WHEN STAFF WALK INTO THE ROOM, ORIENTED TO SELF AND LOCATION, TELLS THIS NURSE THAT HE HAS PNEUMONIA. PT DIFFICULT TO UNDERSTAND AT TIMES BUT ANSWERS MOST QUESTIONS APPROPRIATELY. PT COOPERATIVE WITH NURSING CARE BUT DID NOT WANT THIS RN PROVIDE ORAL CARE. VSS, PT ON ROOM AIR. QUIÑONES IN PLACE, WITH BRIGHT RED OUTPUT, SOME CLOTS, IRRIGATED NEEDED. PT MOVES ALL EXTREMETIES, REQUIRES SOME ASSISTANCE WITH REPOSITIONING.
--- NOTE | 2020-12-19 06:39 | NUR ---
SHIFT SUMMARY PT AWAKE FOR MOST OF NIGHT, CALL PLACED TO DR GONZALEZ REGARDING HOME MEDICATION LIST, NEW ORDER FOR BEDTIME MEDS OF SEROQUEL AND AMBIEN. PT UNABLE TO TAKE FULL SEROQUEL DOSE, CRUSHED TABLETS R/T LARGE SIZE AND PT DID NOT LIKE THE TASTE. PT SLEPT FOR APPROX TWO HOURS AFTER SEROQUEL AND AMBIEN ADMINISTRATION. PT CONTINUES TO HAVE BRIGHT RED DRAINAGE FROM QUIÑONES, IRRIGATED x2 THIS SHIFT. PT REMAINS CALM, COOPERATIVE AND PLEASANT.
[2020-12-19 07:53] LABS: BASOPHILS ABSOLUTE AUTO 0.04 K/mm3 (0.00-0.23); BASOPHILS PERCENT AUTO 1 % (0-2); EOSINOPHILS PERCENT AUTO 7 % (0-6); Hematocrit 36.4 % (37.0-53.0); Hemoglobin 12.5 g/dL (13.5-17.5); IMMATURE GRAN ABSOLUTE AUTO 0.12 K/mm3 (0.00-0.10); IMMATURE GRAN PERCENT AUTO 2 % (0-1); LYMPHOCYTES ABSOLUTE AUTO 2.24 K/mm3 (0.84-5.20); LYMPHOCYTES PERCENT AUTO 39 % (21-46); MONOCYTES ABSOLUTE AUTO 0.67 K/mm3 (0.16-1.47); MONOCYTES PERCENT AUTO 12 % (4-13); Mean Corpuscular HGB 34.4 pg (26.0-34.0); Mean Corpuscular HGB Conc 34.3 g/dL (31.5-36.5); Mean Corpuscular Volume 100 fL (80-100); Mean Platelet Volume 9.1 fL (9.1-12.4); NEUTROPHILS PERCENT AUTO 40 % (41-73); Platelet Count 169 K/mm3 (150-400); RDW Coefficient Variation 13.4 % (11.7-14.2); RDW Standard Deviation 49.5 fL (35.1-46.3); Red Blood Cell Count 3.63 M/mm3 (4.30-5.90); White Blood Cell Count 5.77 K/mm3 (4.00-11.30)
[2020-12-19 08:16] LABS: Anion Gap 4 mmol/L (6-16); Blood Urea Nitrogen 12 mg/dL (8-24); Bun/Creatinine Ratio 21.5 (12.0-20.0); CO2, Blood 28 mmol/L (21-32); Calcium, Blood 8.8 mg/dL (8.5-10.1); Chloride, Blood 109 mmol/L (98-108); Creatinine, Blood 0.56 mg/dL (0.60-1.20); Glomerular Filtration Rate >60 (60-); Glucose, Blood 89 mg/dL (70-99); Magnesium, Blood 1.8 mg/dL (1.6-2.4); Phosphorus, Blood 2.9 mg/dL (2.5-4.9); Potassium, Blood 3.8 mmol/L (3.5-5.5); Sodium, Blood 141 mmol/L (136-145)
--- NOTE | 2020-12-19 09:47 | NUR ---
Mayank refused his breakfast, and spat out the pudding with a whole pill in it this morning. He did take the pill crushed in applesauce, and drank one sip of water afterwards. Refused further oral intake. Mo catheter draining dark red urine; noted with Dr. Moore this morning. CBC is noted after am draw; H& H are stable from yesterday. Irrigated with total of 60cc sterile water, and light pink urine drained out, only one small clot noted. Doctor states looking into urology consultation and possibly transfer.
--- NOTE | 2020-12-19 11:03 | NUR ---
Continues to have dark red urine.
--- NOTE | 2020-12-19 11:07 | NUR ---
Call to Dr. Moore regarding pt's home medications which are on his home med rec but not currently ordered. The doctor is going to look them over and order what is needed. Also updated doctor on pt's inability to take flomax since the pt's medications are needing to be crushed to be taken, and flomax cannot be opened and sprinkled.
--- NOTE | 2020-12-19 15:26 | NUR ---
Pt repositioned in the recliner chair. He is still only taking sips of water, 1-2 at a time, and then refusing by saying "NO!", turning head away, and not opening his mouth for oral intake. This time he was able to swallow two sips of water without coughing, but still refused further po intake. Urine continues to be dark red, occasional clots, and requiring irrigation 2-3 x per shift. Call to Dr. Moore with concern for dehydration with pt refusing oral intake and no back up IVF except for Rocephin.
--- NOTE | 2020-12-19 17:21 | NUR ---
Telephone report given to Felix Draper RN at this time. Transferring pt to 313-2
--- NOTE | 2020-12-19 18:39 | NUR ---
ICU 10 TRANSFER TO RM [id number] REPORT RECIEVED. PT ARRIVE TO RM APPROX 1730, TRANSFER w SLIDER SHEET BED TO BED. HE IS VERY STIFF, FEARFUL w TRANSFER, TURNING IN BED. REASSURANCE PROVIDED. MINIMAL VERBAL, HX DOWNS SYNDROME/CHILDLIKE PER REPORT. NO S/S PAIN OR DISCOMFORT. QUIÑONES CATH DRNG BLOODY RED URINE w CLOTS. LR INFUSING @ 125 ML/HR VIA R AC IV SITE. NEEDLEMAKER ATTEMPT TO ASSIST HIM w PUREE DINNER HOWEVER PT REFUSES, BECOMES SOMEWHAT AGITATED w ENCOURAGEMENT. ASSISTED HIM w TV, SEEMS CONTENT. BED ALARM IN USE.
--- NOTE | 2020-12-19 21:49 | NUR ---
PT MEDS WERE CRUSHED AND PUT IN APPLESAUCE, SEVERAL ATTEMPTS MADE TO GET PT TO TAKE MEDICATION, PT TOOK ONE BITE AND SPIT OUT ONTO GOWN. PT WAS REPOSITIONED, SMALL BM NOTED AND ATTENDS CHANGED, PT HAS BLE EDEMA PAS STOCKINGS ON, WILL MONITOR FOR ADVERSE AFFECTS. QUIÑONES CATH DRAINING RED WITH FEW CLOTS VISIBLE AT THIS TIME. PT FLOATED ON PILLOWS, BED ALARM ON.
[2020-12-20 05:16] LABS: Hematocrit 30.7 % (37.0-53.0); Hemoglobin 10.6 g/dL (13.5-17.5); Mean Corpuscular HGB 34.6 pg (26.0-34.0); Mean Corpuscular HGB Conc 34.5 g/dL (31.5-36.5); Mean Corpuscular Volume 100 fL (80-100); Mean Platelet Volume 8.9 fL (9.1-12.4); NRBC ABSOLUTE 0.02 K/mm3 (0.00-0.02); NRBC Auto 0.3 /100 WBC (0.0-0.2); Platelet Count 190 K/mm3 (150-400); RDW Coefficient Variation 13.4 % (11.7-14.2); RDW Standard Deviation 49.6 fL (35.1-46.3); Red Blood Cell Count 3.06 M/mm3 (4.30-5.90); White Blood Cell Count 5.83 K/mm3 (4.00-11.30)
[2020-12-20 05:44] LABS: Anion Gap 6 mmol/L (6-16); Blood Urea Nitrogen 13 mg/dL (8-24); Bun/Creatinine Ratio 21.7 (12.0-20.0); CO2, Blood 26 mmol/L (21-32); Calcium, Blood 8.2 mg/dL (8.5-10.1); Chloride, Blood 110 mmol/L (98-108); Glomerular Filtration Rate >60 (60-); Glucose, Blood 81 mg/dL (70-99); Potassium, Blood 3.9 mmol/L (3.5-5.5); Sodium, Blood 142 mmol/L (136-145)
--- NOTE | 2020-12-20 06:14 | NUR ---
PT HAS DOWNS SYNDROME, WOULD NOT TAKE CRUSHED MEDS IN APPLESAUCE FROM RN BUT SPIT OUT. QUIÑONES CATH DRAINING RED URINE CLOTS OBSERVED, BLADDERSCAN PERFORMED, NO BLADDER RETENTION NOTED. PT DOES HAVE LOWER BLE EDEMA. SLEPT VERY LITTLE THIS SHIFT.
--- NOTE | 2020-12-20 10:35 | NUR ---
BLADDER IRIGATION QUIÑONES FIRST EMPTIED OF 260 MLS RED/FLYNN URINE. QUIÑONES THEN HAND IRRIGATED WITH STERILE WATER 50 MLS X2. THE CATHETER IRRIGATED AND ASPIRATED VERY EASILY. THE FIRST 50 ML ASPIRATE WAS PINK WITH 2 TINY CLOTS. THE 2ND 50 ML ASPIRATE HAD A SLIGHT PINK TINGE, NO CLOTS. HE TOLERATED IT WELL. NEW QUIÑONES BAG ATTACHED.
--- NOTE | 2020-12-20 11:33 | NUR ---
AM ASSESSMENT PT IS AWAKE, RESPONDS TO NAME HOWEVER DOES NOT ANSW QUESTIONS OR FOLLOW COMMANDS. NO S/S OF PAIN OR DISCOMFORT UNLESS TURNED OR REPOSITIONED THEN GRIMACES & STIFFENS, SEEMS FEARFUL. HE WOULD NOT EAT BREAKFAST THIS AM. WAS ABLE TO GET HIM TO TAKE AM MEDS CRUSHED w VANILLA PUDDING. SPOKE w PT'S CAREGIVER WHO STATE HE USUALLY HAS GOOD APPETITE & ABLE TO FEED HIMSELF. CAREGIVER WILL BE IN THIS AFTERNOON. STATE PT IS VERY HABEMATOLEL HOWEVER ABLE TO READ SO WE HAVE ATTEMPTED TO COMMUNICATE IN THAT MANNER. COMPLETE BEDBATH PROVIDED. MED LOOSE STOOL THIS AM. URINE DRNG VIA QUIÑONES CATH BLOODY THIS AM, CATH IRRIGATED PER DR GANT, 1 MED CLOT OUT.
--- NOTE | 2020-12-20 17:14 | NUR ---
PM ASSESSMENT PT'S CAREGIVER JOHN IN THIS AFTERNOON. PT RECOGNIZE HER, RESPONDS WITH SMILES. HE COMMUNICATES MINIMALLY. PROVIDED CAREGIVER UPDATE. SHE ASSISTED US TO GIVE AFTERNOON MEDS w BITES OF PUDDING, COAXED PT TO TAKE A FEW DRINKS OF WATER. SHE STATE THIS IS NOT HIS USUAL GOOD APPETITE. PT ABLE TO MAKE KNOWN THAT HIS THROAT IS SORE. HE CONTINUES WEAK, HANDS & FEET PUFFY/EDEMATOUS 2+. IVF HAVE FINISHED, IV SL @ THIS TIME. QUIÑONES CATH PATENT, URINE HAS INCREASINGLY CLEARED THIS AFTERNOON HOWEVER PINK w OCCASIONAL CLOT. PT HAS BEEN SITTING UP IN BED T/O DAY WATCHING TV, APPEARS HAPPY/CONTENT. VSS.
--- NOTE | 2020-12-20 22:34 | NUR ---
2129 PT SPIT OUT MEDS AND REFUSED TO TAKE ANYMORE. MED CRUSHED IN APPLESAUCE. PT ALSO REFUSING TO DRINK ANY PO FLUIDS.
--- NOTE | 2020-12-21 05:19 | NUR ---
SUMMARY PT SPIT OUT HIS MEDS AND REFUSED TO DRINK FLUIDS. PT REQUIRED BLADDER IRRIGATION WITH SMALL CLOTS NOTED. QUIÑONES DRAINING PINK URINE W/ CLOTS NOTED. PT HAS BEEN AWAKE FOR MOST OF SHIFT. PT HAD A NOTED LOOSE BM. PT REMAINS STIFF AND NOTED EDEMA IN LEGS AND ARMS. PT CURRENTLY WATCHING TV AND IN NO DISTRESS. CALL LIGHT IN REACH AND BED ALARM ON.
[2020-12-21 08:15] LABS: Hematocrit 32.4 % (37.0-53.0); Hemoglobin 11.1 g/dL (13.5-17.5); Mean Corpuscular HGB 34.4 pg (26.0-34.0); Mean Corpuscular HGB Conc 34.3 g/dL (31.5-36.5); Mean Corpuscular Volume 100 fL (80-100); Mean Platelet Volume 9.4 fL (9.1-12.4); Platelet Count 245 K/mm3 (150-400); RDW Coefficient Variation 13.5 % (11.7-14.2); RDW Standard Deviation 49.6 fL (35.1-46.3); Red Blood Cell Count 3.23 M/mm3 (4.30-5.90); White Blood Cell Count 6.06 K/mm3 (4.00-11.30)
--- NOTE | 2020-12-21 17:31 | NUR ---
PT AOX1 AND HAS BEEN FAIRLY COOPERATIVE OF CARE. PT IS INCONTENT OF STOOL. PT'S QUIÑONES LOOKED IMPROVE AT THE START OF SHIFT. THIS CHANGED ABOUT MID DAY AND QUIÑONES HAS BEEN FLUSHED X4 TO PREVENT CLOTS. URINE HAS INCREASED IN REDNESS AGAIN. PT STAYS IN BED AND WAS BETTER AT TAKING PILLS TODAY. WILL CONTINUE TO MONITOR.
[2020-12-22 05:24] LABS: Hematocrit 34.6 % (37.0-53.0); Hemoglobin 11.4 g/dL (13.5-17.5); Mean Corpuscular HGB 33.6 pg (26.0-34.0); Mean Corpuscular HGB Conc 32.9 g/dL (31.5-36.5); Mean Corpuscular Volume 102 fL (80-100); Mean Platelet Volume 9.1 fL (9.1-12.4); Platelet Count 219 K/mm3 (150-400); RDW Coefficient Variation 13.6 % (11.7-14.2); RDW Standard Deviation 50.1 fL (35.1-46.3); Red Blood Cell Count 3.39 M/mm3 (4.30-5.90); White Blood Cell Count 6.08 K/mm3 (4.00-11.30)
--- NOTE | 2020-12-22 05:37 | NUR ---
SUMMARY PT QUIÑONES REQUIRED MULTIPLE MANUAL BLADDER IRRIGATION. PT HAD SMALL BLOOD CLOTS NOTED DURING IRRIGATION. PT QUIÑONES DRAINING CRANBERRY COLOR URINE. PT WAS AGREEABLE TO TAKING MEDS THIS SHIFT. PT HAS SLEPT T/O SHIFT. PT CURRENTLY SLEEPING IN NO DISTRESS. CALL LIGHT IN REACH BED ALARM ON.
[2020-12-22 05:55] LABS: Anion Gap 8 mmol/L (6-16); Blood Urea Nitrogen 13 mg/dL (8-24); Bun/Creatinine Ratio 23.7 (12.0-20.0); CO2, Blood 25 mmol/L (21-32); Calcium, Blood 8.2 mg/dL (8.5-10.1); Chloride, Blood 111 mmol/L (98-108); Creatinine, Blood 0.55 mg/dL (0.60-1.20); Glomerular Filtration Rate >60 (60-); Glucose, Blood 77 mg/dL (70-99); Potassium, Blood 3.8 mmol/L (3.5-5.5); Sodium, Blood 144 mmol/L (136-145)
--- NOTE | 2020-12-22 17:12 | NUR ---
PT AOX1 AND COOPERATIVE OF CARE. PT SLEEP MOST OF THE MORNING. PT TOOK MEDICATION, BUT THEN FELL RIGHT BACK TO SLEEP. PT HAS HAD HIS QUIÑONES FLUSHED X 5 WITH A TOTAL OF 300 MLS. NO RESISTANCE AND IT ALL FLOWED OUT CRANBERRY RED IN COLOR. DR GANT WAS NOTIFIED AND HE STATED HE WILL CONSULT WEDNESDAY WITH UROLOGY DOCTOR. BED ALARM IN IS PLACE AND PT IS CHECKED ON FREQUENTLY HE DOES NOT USE CALL LIGHT. WILL CONTINUE TO MONITOR.
[2020-12-23 04:40] LABS: Hematocrit 34.8 % (37.0-53.0); Hemoglobin 11.6 g/dL (13.5-17.5); Mean Corpuscular HGB Conc 33.3 g/dL (31.5-36.5); Mean Corpuscular Volume 102 fL (80-100); Mean Platelet Volume 8.8 fL (9.1-12.4); Platelet Count 227 K/mm3 (150-400); RDW Coefficient Variation 13.9 % (11.7-14.2); RDW Standard Deviation 50.8 fL (35.1-46.3); Red Blood Cell Count 3.41 M/mm3 (4.30-5.90); White Blood Cell Count 6.05 K/mm3 (4.00-11.30)
[2020-12-23 04:54] LABS: Anion Gap 3 mmol/L (6-16); Blood Urea Nitrogen 16 mg/dL (8-24); CO2, Blood 30 mmol/L (21-32); Calcium, Blood 8.5 mg/dL (8.5-10.1); Chloride, Blood 112 mmol/L (98-108); Creatinine, Blood 0.64 mg/dL (0.60-1.20); Glomerular Filtration Rate >60 (60-); Glucose, Blood 85 mg/dL (70-99); Potassium, Blood 4.1 mmol/L (3.5-5.5); Sodium, Blood 145 mmol/L (136-145)
--- NOTE | 2020-12-23 05:51 | NUR ---
SUMMARY PT HAD HIS SEROQUEL AND AMBIEN DOSE LOWERED. DR CUNNINGHAM WAS CALLED AND INFORMED OF PT SLEEPING ALL NIGHT BEFORE AND MOST OF DAY. DR CUNNINGHAM ORDERED REDUCED DOSES. PT TOOK MEDS AND HAS BEEN SLEEPING WELL. PT CONTINUES TO NEED MANUAL BLADDER IRRIGATION W/ BLOOD CLOTS BEING REMOVED. PT QUIÑONES IS DRAINING CRANBERRY URINE. PT HAD NO OTHER ACUTE ISSUES NOTED. PT CURRENTLY SLEEPING SOUNDLY AND BREATHING EASY. PT REPOSITIONED Q2 HRS. CALL LIGHT IN REACH AND BED ALARM ON.
--- NOTE | 2020-12-23 10:27 | NUR ---
UPDATE TO LONG-TERM UPDATE GIVEN TO JOHN JURADO WITH [facility] LONG-TERM.
--- NOTE | 2020-12-23 16:35 | NUR ---
SHIFT SUMMARY PT CONTINUES TO HAVE CRANBERRY COLORED URINE WITH CLOTS. FLUSH OF QUIÑONES WITH STERILE WATER HAS BEEN DONE TWICE SO FAR THIS SHIFT. CLOTS REVEALED AFER EACH FLUSH. PT BLADDER SCANED TO BE SURE THAT BLADDER IS EMPTYING. 0 CC REVEALED. PT UP TO RECLINER THIS AFTERNOON. APPETITE IMPROVED COMPARED TO THIS AM. PT TOLERATING MEDS CRUSHED IN APPLESAUCE & A FEW WHOLE MEDS ONE AT A TIME FOR MEDS THAT CANNOT BE CRUSHED. NO ACUTE CHANGES IN ASSESSMENT AT THIS TIME. JOHN, PTS CAREGIVER, UPDATED ON PLAN ON CARE. DR. GANT INFORMED THAT PT CAREGIVERS ARE NOT ABLE TO CARE FOR OR MAINTAIN A QUIÑONES CATHETER. PT CURRENTLY UP IN CHAIR, WATCHING TV & TALKING TO SELF. VS REVIEWED. CALL LIGHT IN REACH.
--- NOTE | 2020-12-24 04:43 | NUR ---
SHIFT SUMMARY- PT. ALERT TO SELF W/HX OF DOWN SYNDROME. HAD NO COMPLAINTS OF PAIN OR DISCOMFORT DURING THE NIGHT. PT. HAS QUIÑONES CATHETER IN PLACE, PATENT AND DRAINING. NOTED HEMATURIA WITH CLOTS, BLADDER IRRIGATION DONE PER ORDER MULTIPLE TIMES DURING THE NIGHT, TOLERATED WELL. CLOTS WITH EVERY IRRIGATION. PT. ALSO NOTED TO HAVE REDNESS/EXCORIATION TO GLUTEAL FOLDS THAT IS PAINFUL WITH ATTENDS CHANGE. BARRIER CREAM APPLIED WITH EVERY CHANGE. APPEARED TO HAVE RESTED COMFORTABLY T/O THE NIGHT, NO APPARENT DISTRESS NOTED. VSS. CALL LIGHT WITHIN REACH AND SIDE RAILS UPX2. WILL CONT TO MONITOR.
[2020-12-24 04:46] LABS: Hematocrit 35.5 % (37.0-53.0); Hemoglobin 11.8 g/dL (13.5-17.5); Mean Corpuscular HGB 34.3 pg (26.0-34.0); Mean Corpuscular HGB Conc 33.2 g/dL (31.5-36.5); Mean Corpuscular Volume 103 fL (80-100); Platelet Count 228 K/mm3 (150-400); RDW Standard Deviation 51.8 fL (35.1-46.3); Red Blood Cell Count 3.44 M/mm3 (4.30-5.90); White Blood Cell Count 6.83 K/mm3 (4.00-11.30)
[2020-12-24 05:00] LABS: Anion Gap 4 mmol/L (6-16); Blood Urea Nitrogen 23 mg/dL (8-24); CO2, Blood 29 mmol/L (21-32); Calcium, Blood 8.3 mg/dL (8.5-10.1); Chloride, Blood 112 mmol/L (98-108); Creatinine, Blood 0.64 mg/dL (0.60-1.20); Glomerular Filtration Rate >60 (60-); Glucose, Blood 91 mg/dL (70-99); Potassium, Blood 4.6 mmol/L (3.5-5.5); Sodium, Blood 145 mmol/L (136-145)
--- NOTE | 2020-12-24 16:02 | NUR ---
SHIFT SUMMARY PT QUIÑONES CATHETER FLUSHED 3 TIMES SO FAR THIS SHIFT. CRANBERRY COLORED URINE WITH CLOTS PRODUCED AFTER EACH TIME. OTHERWISE QUIÑONES CATH PATENT & DRAINING. CATH CARE COMPLETED TODAY. PT UP TO RECLINER TODAY FOR LUNCH. APPETITE IMPROVED. 2 BMS SO FAR THIS SHIFT. MIRALAX HELD TODAY. GLUTEAL FOLD RED & RAW FROM STOOLS. BARRIER CREAM APPLIED. MONTRELL BOTTLE USED FOR CLEANING AND HAS HELPS WITH PAIN/IRRIATION OF THE AREA. PT TOLERATING REPOSITIONS WELL. OVERALL VERY COOPERATIVE & PLEASANT. MOSTLY TALKS TO HIMSELF IN ROOM WITH GARBLED SPEECH. CARE MANAGEMENT CONSULTED FOR HELP WITH DC PLAN AND POSSIBLE UROLOGY CONSULT OUT OF TOWN. NO OTHER ACUTE CHANGES IN ASSESSMENT AT THIS TIME. VS REVIEWED. CALL LIGHT IN REACH. PT RESTING IN BED AT THIS TIME. MARKETING DEVELOPMENT SPECIALIST, JOHN UPDATED TODAY ON PT CONDITION.
--- NOTE | 2020-12-24 22:45 | NUR ---
ASSUMPTION OF CARE. ALERT ORIENTED TO SELF, GARBLED SPEECH AT TIMES. IS VERY HAPPY, LOVES CARTOONS, AND TALKING ABOUT THEM. FOLLOWS DIRECTIONS. LUNG SOUNDS ARE DIMINISHED BUT CLEAR. NO COUGHING NOTED. STATES HE FEELS GOOD. TOOK MEDS IN APPLESAUCE. CATH WAS LEAKING, FLUSHED WITH 60ML OF STERILE WATER, GOT TWO MEDIUM CLOTS OUT, CATH IS NOW FLOWING YELLOW TO PINK URINE. LOOSE STOOLS WITH EXCORIATION TO BOTTOM AND UP UNDER TESTICLES. HURTS WHEN WE CLEAN HIM, APPLYING BARRIER CREAM EVERY TIME FOR HEALING AND KEEPING HIS BOTTOM FREE FROM FETUS. CALL LIGHT IS IN REACH, BED ALARM IS ON.
[2020-12-25 05:57] LABS: Hematocrit 34.4 % (37.0-53.0); Hemoglobin 11.6 g/dL (13.5-17.5); Mean Corpuscular HGB 34.7 pg (26.0-34.0); Mean Corpuscular HGB Conc 33.7 g/dL (31.5-36.5); Mean Corpuscular Volume 103 fL (80-100); Mean Platelet Volume 9.3 fL (9.1-12.4); Platelet Count 217 K/mm3 (150-400); RDW Coefficient Variation 13.8 % (11.7-14.2); RDW Standard Deviation 51.6 fL (35.1-46.3); Red Blood Cell Count 3.34 M/mm3 (4.30-5.90); White Blood Cell Count 6.62 K/mm3 (4.00-11.30)
[2020-12-25 06:14] LABS: International Normalized Ratio 0.93
[2020-12-25 06:38] LABS: Alanine Aminotransfer (ALT/SGP 18 U/L (12-78); Albumin, Blood 2.1 g/dL (3.4-5.0); Albumin/Globulin Ratio 0.7 (0.8-1.8); Alk Phos 44 U/L (50-136); Anion Gap 5 mmol/L (6-16); Aspartate Aminotrans (AST/SGOT 18 U/L (12-37); Bilirubin, Total 0.2 mg/dL (0.1-1.0); Blood Urea Nitrogen 17 mg/dL (8-24); Bun/Creatinine Ratio 28.3 (12.0-20.0); CO2, Blood 29 mmol/L (21-32); Calcium, Blood 8.3 mg/dL (8.5-10.1); Chloride, Blood 107 mmol/L (98-108); Globulin, Blood 3.1 g/dL (2.2-4.0); Glomerular Filtration Rate >60 (60-); Glucose, Blood 78 mg/dL (70-99); Potassium, Blood 4.7 mmol/L (3.5-5.5); Sodium, Blood 141 mmol/L (136-145); Total Protein, Blood 5.2 g/dL (6.4-8.2)
--- NOTE | 2020-12-25 07:35 | NUR ---
SHIFT SUMMARY: AO TO SELF, MENTALLY DELAYED, CHILD LIKE BEHAVIOR. LOVES TO WATCH HIS CARTOONS. FOLLOWS SOME DIRECTIONS. LUNG SOUNDS WERE CLEAR WITH DIMINISHED BASES, NO COUGH OR CONGESTION. TAKES MEDS CURSHED IN APPLESAUCE OR 1 AT A TIME IN APPLESAUCE. QUIÑONES CATHETER WITH RED YELLOW URINE, BLOOD CLOTS MEDIUM SIZE. FLUSHED CATHTER TWICE THIS SHIFT WITH MEDIUM CLOTS ON RETURN. HE DID HAVE SOFT LOOSE STOOL A COUPLE OF TIME. HE DOES NOT LIKE HIS BOTTOM TO BE CHANGED DUE TO EXCORIATION AND BLEEDING. APPLIED BARRIER CREAM AND POWDER ALTERNATING THEM. VS WNL, AFEBRILE. NO OTHER ACUTE CHANGE TO NOTE, CALL LIGHT IN REACH.
--- NOTE | 2020-12-25 18:45 | NUR ---
SHIFT SUMMARY PT AWAKE AND WATCHING CARTOONS THIS AM. TALKING TO HIMSELF AND THE TV. PT YELLS OUT AT THE TV AND IMAGINARY PEOPLE. INCONTINENT OF BOWELS WITH LOOSE, FREQUENT STOOLS ALL DAY LONG. IMODIUM OBTAINED AND GIVEN WELL OINTMENTS FOR BOTTOM. PT'S BUTTOCKS IS VERY EXCORIATED AND WEEPING. FREQUENT CHANGES DONE TO ATTENDS. QUIÑONES TO GRAVITY WITH LIGHT CRANBERRY COLORED URINE. OCCASSIONAL CLOTS IN TUBING AND SOMETIMES OCCLUDING DRAINAGE. PT YELLS OUT THAT HE HAS TO "PEE". CATHETER FLUSHED NEEDED WITH CLOTS FLOWING OUT. URINE MAY BE CLEARING SOME. PT IS ALSO A FEEDER, EATING WELL WITH ASSIST. TAKES MEDS WHOLE IN APPLESAUCE. NO C/O PAIN, EXCEPT FOR CLEANING EXCORIATED BOTTOM. LUNGS CTA. BED ALARM ON FOR SAFETY. CALL LT IN REACH.
--- NOTE | 2020-12-25 22:11 | NUR ---
ASSUMPTION OF CARE. LIGIA HAS BEEN VERYT TALKATIVE YELLING AT HIS REFELCTION IN THE WINDOW. HE STILL FOLLOWS DIRECTION BUT IS MORE ACTIVE THEN YESTERDAY. HE HAS TRIED TO GET UP OUT OF BED SEVERAL TIMES, FOUND HALF HANGING ON THE BED SEVERAL TIMES WITH ALARM SOUNDING. ENCOURAGED HIM TO STAY IN BED. CATHETER FLUSHED GOT 1 SMAL CLOT OUT, URINE IS MORE PINK COLOR TODAY. NO LOOSE STOOL SO FAR. BARRIER CREAM APPLIED TO BOTTOM. LUNGS ARE CLEAR. PAIN ONLY WITH DIAPER CHANGE. CALL LIGHT IS IN REACH, BED ALARM IS ON.
--- NOTE | 2020-12-26 05:06 | NUR ---
SHIFT SUMMARY: AO TO SELF, FOLLOWS DIRECTION, WAS VERY TALKATIVE AND ACTIVE AT START OF SHIFT. ATTEMPTED TO GET OUT OF BED ON SEVERAL OCCATIONS. TAKES MEDS IN APPLESAUCE ONE AT A TIME. CATHETER FLUSHED X2 60ML EACH, GOT SAME ON RETURN, NO BLOOD CLOTS THIS SHIFT, URINE STILL PINKISH COLOR. 1 SMEAR OF A STOOL LAST NIGHT, BOTTOM IS VERY RAW, EXCORIATION, APPLIED CREAMS. VS WNL. NO PAIN OR DISCOMFORT. SLEPT WELL T/O NIGHT. BED ALARM ON, CALL LIGHT IN REACH.
[2020-12-26 05:25] LABS: Hematocrit 36.5 % (37.0-53.0); Hemoglobin 12.3 g/dL (13.5-17.5); Mean Corpuscular HGB 34.4 pg (26.0-34.0); Mean Corpuscular HGB Conc 33.7 g/dL (31.5-36.5); Mean Corpuscular Volume 102 fL (80-100); Mean Platelet Volume 9.4 fL (9.1-12.4); Platelet Count 202 K/mm3 (150-400); RDW Coefficient Variation 13.8 % (11.7-14.2); RDW Standard Deviation 51.6 fL (35.1-46.3); Red Blood Cell Count 3.58 M/mm3 (4.30-5.90); White Blood Cell Count 8.21 K/mm3 (4.00-11.30)
[2020-12-26 05:52] LABS: Anion Gap 4 mmol/L (6-16); Blood Urea Nitrogen 19 mg/dL (8-24); Bun/Creatinine Ratio 31.1 (12.0-20.0); CO2, Blood 32 mmol/L (21-32); Calcium, Blood 8.6 mg/dL (8.5-10.1); Chloride, Blood 105 mmol/L (98-108); Creatinine, Blood 0.61 mg/dL (0.60-1.20); Glomerular Filtration Rate >60 (60-); Glucose, Blood 93 mg/dL (70-99); Potassium, Blood 4.5 mmol/L (3.5-5.5); Sodium, Blood 141 mmol/L (136-145)
--- NOTE | 2020-12-26 16:43 | NUR ---
flushed cath no blood clots noted except for first time
--- NOTE | 2020-12-26 17:53 | NUR ---
caregiver called, kelly said I could talk to her, told her that speech said pt should not use a straw that it could lead to aspiration, cg acknowleged risk but said pt refused to drink without a straw, she stated she would try but worried pt would not get enough fluids is no straws were allowed, said she would pass information on to her employer
--- NOTE | 2020-12-26 19:15 | NUR ---
alert and orintated to self, baseline, calls out and very friendly but pulls on hoses and cables, wrapped iv and balderas try to distract and keep changing, flush q2 shift, change and treat coccyx, bsr shared with noc nurse and pt, pt insisted he needed to pee do rn held urinal and congradulated him on doing a good job when he said he was done
--- NOTE | 2020-12-27 07:15 | NUR ---
SHIFT SUMMARY PATIENT ALERT AND ORIENTED TO SELF ONLY. HAD NO COMPLAINTS OF PAIN OR SHORTNESS OF BREATH. CATHETER FLUSHED PER MD ORDER. PATIENT SLEPT WELL OVERNIGHT. IV PATENT AND FLUSHED. BED IN LOWEST POSITION WITH WHEELS LOCKED AND ALARM ON. CALL LIGHT WITHIN REACH. REPORT GIVEN TO ONCOMING RN.
--- NOTE | 2020-12-27 18:01 | NUR ---
still likes to talk even if no one is listing, alert at baseline, knows self and location, call light in reach, medicated and treated as prescribed, treated bottom and flushed cath, bed in low position, no acute changes noted during shift, rm air, saline locked and wrapped, kept blankets and gown on to reduce attraction to cath, will continue to monitor and treat until share bsr with noc nurse and pt
--- NOTE | 2020-12-27 23:59 | NUR ---
89 PT RESTING COMFORTABLY IN BED; QUIÑONES DRAINING LIGHT ORANGE COLORED FLUID.
--- NOTE | 2020-12-28 03:42 | NUR ---
SHIFT SUMMARY: 60 Y/O MALE RESTED COMFORTABLY ALL SHIFT; QUIÑONES DRAINING LIGHT TEA COLORED FLUID; PT ALERT AND ORIENTED X 2; ABLE TO FOLLOW SIMPLE VERBAL COMMANDS; SPEECH SLOW AND THOUGHT PROCESS DISORGANIZED; DENIES PAIN OR NAUSEA; BED ALARM APPLIED, BED LOW POSITION WITH CALL LIGHT AT SIDE.
[2020-12-28 05:07] LABS: BASOPHILS ABSOLUTE AUTO 0.04 K/mm3 (0.00-0.23); BASOPHILS PERCENT AUTO 1 % (0-2); EOSINOPHILS ABSOLUTE AUTO 0.25 K/mm3 (0.00-0.68); EOSINOPHILS PERCENT AUTO 3 % (0-6); Hematocrit 38.6 % (37.0-53.0); Hemoglobin 13.3 g/dL (13.5-17.5); IMMATURE GRAN ABSOLUTE AUTO 0.13 K/mm3 (0.00-0.10); IMMATURE GRAN PERCENT AUTO 2 % (0-1); LYMPHOCYTES PERCENT AUTO 33 % (21-46); MONOCYTES ABSOLUTE AUTO 0.42 K/mm3 (0.16-1.47); MONOCYTES PERCENT AUTO 6 % (4-13); Mean Corpuscular HGB 34.8 pg (26.0-34.0); Mean Corpuscular HGB Conc 34.5 g/dL (31.5-36.5); Mean Corpuscular Volume 101 fL (80-100); Mean Platelet Volume 9.4 fL (9.1-12.4); NEUTROPHILS ABSOLUTE AUTO 4.17 K/mm3 (1.96-9.15); NEUTROPHILS PERCENT AUTO 56 % (41-73); Platelet Count 185 K/mm3 (150-400); RDW Coefficient Variation 13.8 % (11.7-14.2); RDW Standard Deviation 50.5 fL (35.1-46.3); Red Blood Cell Count 3.82 M/mm3 (4.30-5.90); White Blood Cell Count 7.51 K/mm3 (4.00-11.30)
[2020-12-28 05:11] LABS: Alanine Aminotransfer (ALT/SGP 17 U/L (12-78); Albumin, Blood 2.4 g/dL (3.4-5.0); Albumin/Globulin Ratio 0.7 (0.8-1.8); Alk Phos 54 U/L (50-136); Anion Gap 6 mmol/L (6-16); Aspartate Aminotrans (AST/SGOT 11 U/L (12-37); Bilirubin, Total 0.2 mg/dL (0.1-1.0); Blood Urea Nitrogen 22 mg/dL (8-24); Bun/Creatinine Ratio 42.6 (12.0-20.0); CO2, Blood 32 mmol/L (21-32); Calcium, Blood 8.7 mg/dL (8.5-10.1); Chloride, Blood 103 mmol/L (98-108); Creatinine, Blood 0.52 mg/dL (0.60-1.20); Globulin, Blood 3.4 g/dL (2.2-4.0); Glomerular Filtration Rate >60 (60-); Glucose, Blood 82 mg/dL (70-99); Potassium, Blood 4.4 mmol/L (3.5-5.5); Sodium, Blood 141 mmol/L (136-145); Total Protein, Blood 5.8 g/dL (6.4-8.2)
--- NOTE | 2020-12-28 18:28 | NUR ---
SHIFT SUMMARY- PT IS CONFUSED. HE IS COOPERATIVE WITH CARE. HE HAD A FALL THIS AFTERNOON AND WAS PLACED IN A CHRISSY. WAS NOTIVIED. NOT INJURIES APARENT. HE IS EATING AND DRINKING WELL. HE IS A FEEDER. HIS BED ALARM IS ON. HE HAD SEVERAL BM THIS SHIFT. HIS BED IS IN THE LOW POSITION AND CALL LIGHT IS WITIN REACH.
--- NOTE | 2020-12-29 06:02 | NUR ---
PT IS ALERT, CONFUSION DUE TO DOWNS SYNDROME, CHRISSY VEST ON FOR SAFETY. PT DOES NOT CALL, HX OF RECENT FALL. PT TAKES MEDS CRUSHED IN APPLESAUCE. QUIÑONES CATH DRAINING FLYNN URINE WITH SEDIMENT PRESENT.
--- NOTE | 2020-12-29 19:23 | NUR ---
SHIFT SUMMARY- PT IS ALERT, PLESANT AND COOPERATIVE. HE HAS HAD A CHRISSY THIS SHIFT DUE TO IMPULSIVELY TRYING TO GET OUT OF BED AND A FALL YESTERDAY. HE IS EATING AND DRINKING WELL. FLUSHED HIS QUIÑONES THIS SHIFT BECAUSE IT WAS LEAKING AND GOT A FEW SMALL CLOTS OUT. HE HAD A FEW EPISODES OF SHOUTING. WE PUT PANTS ON HIM TO TRY AND PREVENT HIM FROM PULLING AT HIS FOELY. HIS BED IS IN THE LOW POSITION AND HIS CALL LIGHT IS WITIN REACH.
[2020-12-30 05:39] LABS: Hematocrit 35.9 % (37.0-53.0); Hemoglobin 12.1 g/dL (13.5-17.5); Mean Corpuscular HGB 34.6 pg (26.0-34.0); Mean Corpuscular HGB Conc 33.7 g/dL (31.5-36.5); Mean Corpuscular Volume 103 fL (80-100); Mean Platelet Volume 9.8 fL (9.1-12.4); Platelet Count 167 K/mm3 (150-400); RDW Coefficient Variation 14.1 % (11.7-14.2); RDW Standard Deviation 52.2 fL (35.1-46.3); White Blood Cell Count 5.08 K/mm3 (4.00-11.30)
--- NOTE | 2020-12-30 05:53 | NUR ---
PT IS CONFUSED, HAS DOWNS SYNDROME, 2 BMS THIS SHIFT PT FLOATED AND CREAM USED FOR SKIN, WEARING ATTENDS. PT IS IN CHRISSY VEST FOR FALL RISK WITH RECENT FALL. QUIÑONES CATH WHICH IS CLEARING, URINE WAS PINK AT BEGINING OF SHIFT PT HAD PULLED ON IT REPORTED BY PREVIOUS SHIFT. MEDS CRUSHED IN APPLESAUCE.
[2020-12-30 05:59] LABS: Albumin, Blood 2.4 g/dL (3.4-5.0); Anion Gap 4 mmol/L (6-16); Blood Urea Nitrogen 16 mg/dL (8-24); Bun/Creatinine Ratio 32.7 (12.0-20.0); CO2, Blood 32 mmol/L (21-32); Calcium, Blood 8.8 mg/dL (8.5-10.1); Chloride, Blood 107 mmol/L (98-108); Creatinine, Blood 0.49 mg/dL (0.60-1.20); Glomerular Filtration Rate >60 (60-); Glucose, Blood 88 mg/dL (70-99); Phosphorus, Blood 3.8 mg/dL (2.5-4.9); Potassium, Blood 4.2 mmol/L (3.5-5.5); Sodium, Blood 143 mmol/L (136-145)
--- NOTE | 2020-12-30 12:01 | NUR ---
DR MCMULLEN TO BEDSIDE. INFORMED OF TEA COLORED URINE WITH PINK DRAINAGE AT TIMES, OCCASIONAL CLOTS. ALSO INFORMED HER OF PUS FROM [facility], QUIÑONES CARE ALREADY DONE THREE TIMES THIS SHIFT SO FAR, SHE IS AWARE. JUNO
--- NOTE | 2020-12-30 18:48 | NUR ---
SHIFT SUMMARY LIGIA WAS CALM THIS MORNING, TRIALED HIM OFF RESTRAINTS, BUT HE KEPT GETTING UP AND SETTING OF BED ALARM, SO REINIATED.. HIGH FALL RISK, W/C BOUND AT BASELINE. HE WAS AN AO2 WITH GAIT BELT TO [facility] [place] REQUIRED FEED ASSIST, ASP PRECAUTIONS FOLLOWED. GROIN RASH --[place] APPLIED. VERY RED AND EXCORIATED BOTTOM FROM STOOL INCONTINENCE, CALAZIME APPLIED. QUIÑONES HAS RED CLOTS , LIKELY FROM PT PULLING AT IT. DID WELL WITH PILLS IN APPLESAUCE 1 AT A TIME. CAREGIVER VISITED THIS SHIFT. PULLED PIV OUT, RESTARTED NEW PIV AND WRAPPED IT. PER DR MCMULLEN, PULL OUT QUIÑONES IN MORNING IF CLOTS ARE GONE, PT TENDS TO PULL ON IT IN THE DAYTIME. CALL LIGHT IN REACH, BED ALARM ON, CHRISSY VEST IN PLACE, GIVING REPORT TO NIGHT NURSE
--- NOTE | 2020-12-31 05:45 | NUR ---
SHIFT SUMMARY ALERT, ABLE TO MAKE NEEDS KNOWN. AGITATED AT BEGINNING OF SHIFT UP UNTIL AROUND 0000. NOT SURE IF PATIENT IS TALKING TO SELF, SOMEONE ELSE OR JUST REMARKING ON THE SCENERY OUTSIDE. RESISTANT TO ATTENDS CHANGES; R/T EXCORIATION TO GROIN/GLUTEAL FOLDS. REMAINS IN VEST CHRISSY FOR SAFETY. QUIÑONES CONTINUES TO FLOW TEA COLORED WITH CLOTS, GOOD OUTPUT NOTED. ENCOURAGED TO DRINK PO FLUIDS. VSS/AFEBRILE. NO C/O PAIN/DISCOMFORT. BED IN LOWEST POSITION; ALARM ON. CALL LIGHT AND BELONGINGS WITHIN REACH. CONTINUE WITH CURRENT PLAN OF CARE. REPORT TO ONCOMING RN.
--- NOTE | 2020-12-31 19:20 | NUR ---
NO ACUTE CHANGES NOTED THIS SHIFT
--- NOTE | 2021-01-01 06:21 | NUR ---
SHIFT SUMMARY AOX1-SELF. FOLLOWS SOME SIMPLE DIRECTIONS. DOESNT ANSWER QUESTIONS CORRECTLY. NONSENSICAL, OFF TOPIC RESPONSES. YELLING FREQUENTLY @BEGINNING OF SHIFT, HAS BEEN RESTING COMFORTABLY & QUIETLY SINCE MEDICATED c HS SEROQUEL & AMBIEN. NO S/S N/V, DYSPNEA. LUNGS DIM IN BASES. SPO2 >90% ON RA. E/U RESPIRATIONS. LRG INCONT BROWN BM. GLUTEAL CLEFT & GROIN EXCORIATED & RED, BARRIER CREAM APPLIED VERY PAINFUL FOR PT. HE BECOMES AGITATED, CURSING, YELLING AT STAFF WHEN ATTENDS CHANGED @TIMES. PLAN TO POSSIBLE DC BACK TO PREVIOUS LIVING FACILITY TODAY. CHRISSY, BED ALARM & CALL LIGHT IN PLACE FOR SAFETY SINCE PT HIGH FALL RISK & CONFUSED. WCTM.
[2021-01-01 08:11] LABS: Hematocrit 36.4 % (37.0-53.0); Hemoglobin 11.8 g/dL (13.5-17.5); Mean Corpuscular HGB Conc 32.4 g/dL (31.5-36.5); Mean Corpuscular Volume 105 fL (80-100); Mean Platelet Volume 9.7 fL (9.1-12.4); Platelet Count 183 K/mm3 (150-400); RDW Standard Deviation 54.3 fL (35.1-46.3); Red Blood Cell Count 3.47 M/mm3 (4.30-5.90); White Blood Cell Count 4.75 K/mm3 (4.00-11.30)
[2021-01-01 08:26] LABS: Albumin, Blood 2.3 g/dL (3.4-5.0); Anion Gap 3 mmol/L (6-16); Blood Urea Nitrogen 20 mg/dL (8-24); Bun/Creatinine Ratio 33.7 (12.0-20.0); CO2, Blood 34 mmol/L (21-32); Calcium, Blood 8.7 mg/dL (8.5-10.1); Chloride, Blood 106 mmol/L (98-108); Creatinine, Blood 0.59 mg/dL (0.60-1.20); Glomerular Filtration Rate >60 (60-); Glucose, Blood 81 mg/dL (70-99); Potassium, Blood 4.9 mmol/L (3.5-5.5); Sodium, Blood 143 mmol/L (136-145)
[2021-01-01] MEDS ORDERED: Flomax0.4 MG PO (11:30)
[2021-01-01] MEDS ORDERED: NYSTATIN15 GM TOP (11:30)
[2021-01-01] MEDS ORDERED: [UNRECOGNIZED DRUG - OTHER] TOP (11:31)
--- NOTE | 2021-01-02 21:14 | NUR ---
WASTED AMBIEN 2.5 MG AMBIEN AND SEROQUEL 100MG FROM DOSE GIVEN ON 12/29/20 WITH SHRUTI BUSTOS.
[2021-02-15] MEDS ORDERED: CEFP200 PO (19:59)
== END 2021-01-01 14:42 | disposition home or self-care (01) | DRG 871 ==
LOC: ER 20:41 → ICUW 23:04 → MEDS 23:04 → ICUW 12-16 00:30 → MEDS 12-19 17:33
PROVIDERS: Emergency Medicine; Internal Medicine; Internal Medicine Critical Care Medicine; ADMIT Internal Medicine
PROC: 5A09357 Assistance with Respiratory Ventilation, Less than 24 Consecutive Hours, Continuous Positive Airway Pressure (ICD-10-PCS; 2020-12-15)
PROC: 02HV33Z Insertion of Infusion Device into Superior Vena Cava, Percutaneous Approach (ICD-10-PCS; principal; 2020-12-16)
PROC: 0BH17EZ Insertion of Endotracheal Airway into Trachea, Via Natural or Artificial Opening (ICD-10-PCS; 2020-12-16)
PROC: 3E043XZ Introduction of Vasopressor into Central Vein, Percutaneous Approach (ICD-10-PCS; 2020-12-16)
PROC: 5A1935Z Respiratory Ventilation, Less than 24 Consecutive Hours (ICD-10-PCS; 2020-12-16)
DX: A41.9 Sepsis, unspecified organism (principal); J18.9 Pneumonia, unspecified organism; J69.0 Pneumonitis due to inhalation of food and vomit; G92 Toxic encephalopathy; J96.01 Acute respiratory failure with hypoxia; R65.21 Severe sepsis with septic shock; I69.351 Hemiplegia and hemiparesis following cerebral infarction affecting right dominant side; S37.29XA Other injury of bladder, initial encounter; E86.0 Dehydration; E78.5 Hyperlipidemia, unspecified; N30.91 Cystitis, unspecified with hematuria; Z20.822 Contact with and (suspected) exposure to COVID-19; T50.905A Adverse effect of unspecified drugs, medicaments and biological substances, initial encounter; R62.50 Unspecified lack of expected normal physiological development in childhood; I69.322 Dysarthria following cerebral infarction; Q90.9 Down syndrome, unspecified; Z90.89 Acquired absence of other organs; Z98.890 Other specified postprocedural states; Z79.899 Other long term (current) drug therapy
CPT/HCPCS: 0241U; 31500; 36415; 36556; 36600; 51702; 70450; 71045; 74178; 80048; 80053; 80069; 81001; 82140; 82803; 82947; 83605; 83735; 83880; 84100; 84443; 84484; 85025; 85027; 85610; 85730; 87040; 87070; 87086; 87205; 87493; 92526; 92610; 93005; 93010; 94002; 94003; 94640; 94660; 94760; 96365-59; 97162; 97166; 97530; 99285-25; 99291-25; 99292; A9270; C1751; J0330; J0696; J2543; J2704; J3010; J7030; J7050; J7060; J7120; Q9967

== ENCOUNTER 2021-01-14 09:53 | Emergency (ER) | payer OTHER ==
[~2021-01-14] VITALS: Ht 162.6 cm; Wt 68.0 kg
[~2021-01-14 09:53] MED LIST changes: +Flomax0.4 MG PO; +MIRALAX17 GM PO; +NYSTATIN15 GM TOP; +VALP250 PO; +VITAMIN D31000 UNI1 PO; +[UNRECOGNIZED DRUG - OTHER] TOP
[2021-01-14 11:55] LABS: White Blood Cell Count 4.44 K/mm3 (4.00-11.30)
[2021-01-14 11:56] LABS: BASOPHILS ABSOLUTE AUTO 0.03 K/mm3 (0.00-0.23); BASOPHILS PERCENT AUTO 1 % (0-2); EOSINOPHILS ABSOLUTE AUTO 0.15 K/mm3 (0.00-0.68); EOSINOPHILS PERCENT AUTO 3 % (0-6); IMMATURE GRAN ABSOLUTE AUTO 0.09 K/mm3 (0.00-0.10); IMMATURE GRAN PERCENT AUTO 2 % (0-1); LYMPHOCYTES ABSOLUTE AUTO 1.56 K/mm3 (0.84-5.20); LYMPHOCYTES PERCENT AUTO 35 % (21-46); MONOCYTES ABSOLUTE AUTO 0.59 K/mm3 (0.16-1.47); MONOCYTES PERCENT AUTO 13 % (4-13); Mean Corpuscular HGB 34.3 pg (26.0-34.0); Mean Corpuscular HGB Conc 33.3 g/dL (31.5-36.5); Mean Corpuscular Volume 103 fL (80-100); Mean Platelet Volume 9.5 fL (9.1-12.4); NEUTROPHILS ABSOLUTE AUTO 2.02 K/mm3 (1.96-9.15); NEUTROPHILS PERCENT AUTO 46 % (41-73); Platelet Count 154 K/mm3 (150-400); RDW Coefficient Variation 13.3 % (11.7-14.2); RDW Standard Deviation 50.7 fL (35.1-46.3); Red Blood Cell Count 4.08 M/mm3 (4.30-5.90)
[2021-01-14 12:14] LABS: Alanine Aminotransfer (ALT/SGP 17 U/L (12-78); Albumin, Blood 2.7 g/dL (3.4-5.0); Albumin/Globulin Ratio 0.7 (0.8-1.8); Alk Phos 55 U/L (50-136); Anion Gap 1 mmol/L (6-16); Aspartate Aminotrans (AST/SGOT 21 U/L (12-37); Bilirubin, Total 0.5 mg/dL (0.1-1.0); Blood Urea Nitrogen 11 mg/dL (8-24); Bun/Creatinine Ratio 18.8 (12.0-20.0); CO2, Blood 32 mmol/L (21-32); Calcium, Blood 8.6 mg/dL (8.5-10.1); Chloride, Blood 104 mmol/L (98-108); Creatinine, Blood 0.59 mg/dL (0.60-1.20); Globulin, Blood 3.8 g/dL (2.2-4.0); Glomerular Filtration Rate >60 (60-); Glucose, Blood 74 mg/dL (70-99); Potassium, Blood 5.3 mmol/L (3.5-5.5); Sodium, Blood 137 mmol/L (136-145); Total Protein, Blood 6.5 g/dL (6.4-8.2); Valproic Acid 113.8 ug/mL (50.0-100.0)
[2021-02-15] MEDS ORDERED: CEFP200 PO (19:59)
== END 2021-01-14 14:11 | disposition home or self-care (01) ==
LOC: ER 09:53
PROVIDERS: Emergency Medicine
DX: N39.0 Urinary tract infection, site not specified (principal); R41.82 Altered mental status, unspecified; Z79.899 Other long term (current) drug therapy; Z86.73 Personal history of transient ischemic attack (TIA), and cerebral infarction without residual deficits
CPT/HCPCS: 36415; 51798; 70450; 71045; 80053; 80164; 84443; 84484; 85025; 99284-25

== ENCOUNTER 2021-03-06 16:01 | Emergency (ER) | payer OTHER ==
[~2021-03-06] VITALS: Ht 167.6 cm; Wt 65.8 kg
[~2021-03-06 16:01] MED LIST changes: +CEFP200 PO
[2021-03-06 16:24] LABS: BASOPHILS ABSOLUTE AUTO 0.01 K/mm3 (0.00-0.23); BASOPHILS PERCENT AUTO 0 % (0-2); EOSINOPHILS ABSOLUTE AUTO 0.03 K/mm3 (0.00-0.68); EOSINOPHILS PERCENT AUTO 0 % (0-6); Hematocrit 42.1 % (37.0-53.0); Hemoglobin 14.1 g/dL (13.5-17.5); IMMATURE GRAN ABSOLUTE AUTO 0.02 K/mm3 (0.00-0.10); IMMATURE GRAN PERCENT AUTO 0 % (0-1); LYMPHOCYTES ABSOLUTE AUTO 1.13 K/mm3 (0.84-5.20); LYMPHOCYTES PERCENT AUTO 14 % (21-46); MONOCYTES ABSOLUTE AUTO 0.69 K/mm3 (0.16-1.47); MONOCYTES PERCENT AUTO 9 % (4-13); Mean Corpuscular HGB 32.5 pg (26.0-34.0); Mean Corpuscular HGB Conc 33.5 g/dL (31.5-36.5); Mean Corpuscular Volume 97 fL (80-100); Mean Platelet Volume 9.3 fL (9.1-12.4); NEUTROPHILS ABSOLUTE AUTO 6.06 K/mm3 (1.96-9.15); NEUTROPHILS PERCENT AUTO 76 % (41-73); Platelet Count 161 K/mm3 (150-400); RDW Coefficient Variation 12.7 % (11.7-14.2); RDW Standard Deviation 45.3 fL (35.1-46.3); Red Blood Cell Count 4.34 M/mm3 (4.30-5.90); White Blood Cell Count 7.94 K/mm3 (4.00-11.30)
[2021-03-06] MEDS ORDERED: DIVA250EC PO (16:27)
[2021-03-06] MEDS ORDERED: OXYB5 PO (16:29)
[2021-03-06 16:36] LABS: Alanine Aminotransfer (ALT/SGP 16 U/L (12-78); Albumin, Blood 3.1 g/dL (3.4-5.0); Albumin/Globulin Ratio 0.7 (0.8-1.8); Alk Phos 64 U/L (50-136); Anion Gap 5 mmol/L (6-16); Aspartate Aminotrans (AST/SGOT 13 U/L (12-37); Bilirubin, Total 0.4 mg/dL (0.1-1.0); Blood Urea Nitrogen 13 mg/dL (8-24); Bun/Creatinine Ratio 17.3 (12.0-20.0); CO2, Blood 28 mmol/L (21-32); Chloride, Blood 99 mmol/L (98-108); Creatinine, Blood 0.75 mg/dL (0.60-1.20); Globulin, Blood 4.2 g/dL (2.2-4.0); Glomerular Filtration Rate >60 (60-); Glucose, Blood 86 mg/dL (70-99); Potassium, Blood 4.8 mmol/L (3.5-5.5); Sodium, Blood 132 mmol/L (136-145); Total Protein, Blood 7.3 g/dL (6.4-8.2)
[2021-03-06 17:33] LABS: Valproic Acid 127.2 ug/mL (50.0-100.0)
[2021-03-06 18:28] LABS: Source, Urine Voided
[2021-03-06 18:40] LABS: Appearance, Urine Cloudy (Clear); Bilirubin, Urine Neg (Neg); Blood, Urine 5+ (Neg); Color, Urine Yellow (P-Yellow); Glucose Qualitative, Urine Neg (Neg); Ketones, Urine 2+ (Neg); Leukocyte Esterase, Urine 2+ (Neg); Nitrite, Urine Neg (Neg); Protein, Urine 3+ (Neg); Urobilinogen, Urine NORM (Normal)
[2021-03-06 18:57] LABS: Red Blood Cells, Urine 50-100 /hpf (0-2)
[2021-03-06 18:58] LABS: Squamous Epithelial Cells Few /hpf (Few)
[2021-03-06 18:59] LABS: Bacteria Few /hpf
[2021-03-06 21:20] LABS: Valproic Acid 87.8 ug/mL (50.0-100.0)
[2021-03-06] MEDS ORDERED: CEFP200 PO (21:39)
== END 2021-03-06 22:29 | disposition home or self-care (01) ==
LOC: ER 16:01
PROVIDERS: Emergency Medicine
DX: R41.82 Altered mental status, unspecified (principal); T42.6X5A Adverse effect of other antiepileptic and sedative-hypnotic drugs, initial encounter; N39.0 Urinary tract infection, site not specified; Q90.9 Down syndrome, unspecified; Z79.899 Other long term (current) drug therapy
CPT/HCPCS: 36415; 51702; 70450; 71045; 80053; 80164; 81001; 82140; 85025; 87077; 87086; 87186; 96365; 99285-25; J0696; J7030

== ENCOUNTER 2021-03-15 15:31 | Emergency (ER) | payer OTHER ==
[~2021-03-15] VITALS: Ht 165.1 cm; Wt 68.0 kg
[~2021-03-15 15:31] MED LIST changes: +OXYB5 PO
== END 2021-03-15 19:25 | disposition home or self-care (01) ==
LOC: ER 15:31
DX: Z04.3 Encounter for examination and observation following other accident (principal); W05.0XXA Fall from non-moving wheelchair, initial encounter; Z98.890 Other specified postprocedural states; Z79.899 Other long term (current) drug therapy; Z91.81 History of falling; Z86.73 Personal history of transient ischemic attack (TIA), and cerebral infarction without residual deficits
CPT/HCPCS: 70450; 99283-25

== ENCOUNTER 2021-04-13 09:31 | Emergency (ER) | payer OTHER ==
[~2021-04-13] VITALS: Ht 162.6 cm; Wt 77.1 kg
[2021-04-13 10:39] LABS: Source, Urine Clean Catch
[2021-04-13 10:43] LABS: Bilirubin, Urine Neg (Neg); Blood, Urine 5+ (Neg); Glucose Qualitative, Urine Neg (Neg); Ketones, Urine Neg (Neg); Leukocyte Esterase, Urine 3+ (Neg); Nitrite, Urine Pos (Neg); Protein, Urine 2+ (Neg); Urobilinogen, Urine NORM (Normal); pH, Urine 6.5 (5.0-8.0)
[2021-04-13 10:53] LABS: Appearance, Urine Cloudy (Clear); Color, Urine Yellow (P-Yellow)
[2021-04-13 10:55] LABS: Bacteria Few /hpf; Squamous Epithelial Cells Rare /hpf (Few); White Blood Cells, Urine TNTC /hpf (0-5)
[2021-04-13] MEDS ORDERED: CEFD300 PO (11:02)
== END 2021-04-13 11:16 | disposition home or self-care (01) ==
LOC: ER 09:31
PROVIDERS: Physician Assistant
DX: N39.0 Urinary tract infection, site not specified (principal); Z46.6 Encounter for fitting and adjustment of urinary device; Z79.899 Other long term (current) drug therapy
CPT/HCPCS: 51702; 51798; 81001; 87086; 99283-25; A9270

== ENCOUNTER → 2023-08-16 | Outpatient (CLI) | payer OTHER ==
[~2023-08-16] MED LIST changes: +CEFD300 PO
== END | disposition home or self-care (01) ==
LOC: LAB 14:14 → LAB SHORT 14:14
DX: N39.0 Urinary tract infection, site not specified (principal)
CPT/HCPCS: 87086

== ENCOUNTER → 2023-09-01 | Outpatient (CLI) | payer OTHER ==
[2023-09-01 11:34] LABS: Source, Urine Clean Catch
[2023-09-01 11:52] LABS: Bacteria Rare /hpf; Squamous Epithelial Cells Rare /hpf (Few); Transitional Epithelial Cells Few /hpf (0-Rare)
== END | disposition home or self-care (01) ==
LOC: LAB 11:32 → LAB SHORT 11:32
PROVIDERS: Physician Assistant
DX: R82.90 Unspecified abnormal findings in urine (principal)
CPT/HCPCS: 81015; 87086

== ENCOUNTER 2024-06-19 10:47 | Emergency (ER) | payer OTHER ==
[~2024-06-19] VITALS: Ht 167.6 cm; Wt 81.7 kg
[~2024-06-19 10:47] MED LIST changes: +MIRT15
[2024-06-19 11:12] VITALS: BP 152/100
[2024-06-19] MEDS ORDERED: Bactrim Ds Tab1 EACH PO (11:14)
== END 2024-06-19 11:36 | disposition home or self-care (01) ==
LOC: ER 10:47
DX: L02.512 Cutaneous abscess of left hand (principal); Z86.73 Personal history of transient ischemic attack (TIA), and cerebral infarction without residual deficits; Z79.899 Other long term (current) drug therapy
CPT/HCPCS: 10060; 99283-25

== ENCOUNTER 2024-08-20 17:11 | Emergency (ER) | payer OTHER ==
[~2024-08-20] VITALS: Ht 162.6 cm; Wt 81.7 kg
[~2024-08-20 17:11] MED LIST changes: +Bactrim Ds Tab1 EACH PO
[2024-08-20 17:48] VITALS: BP 157/86
== END 2024-08-20 19:30 | disposition home or self-care (01) ==
LOC: ER 17:11
DX: Z46.6 Encounter for fitting and adjustment of urinary device (principal); Q90.9 Down syndrome, unspecified
CPT/HCPCS: 51702; 99283-25

== ENCOUNTER → 2024-10-16 | Outpatient (CLI) | payer OTHER | END | disposition home or self-care (01) | LOC: LAB SHORT 12:22 → LAB 12:22 | DX: R82.81 Pyuria (principal); Z97.8 Presence of other specified devices | CPT/HCPCS: 87077; 87086; 87186 ==

== ENCOUNTER → 2025-01-05 | Outpatient (CLI) | payer OTHER ==
[2025-01-05 13:49] LABS: BASOPHILS ABSOLUTE AUTO 0.03 K/mm3 (0.00-0.23); BASOPHILS PERCENT AUTO 0 % (0-2); EOSINOPHILS ABSOLUTE AUTO 0.29 K/mm3 (0.00-0.68); EOSINOPHILS PERCENT AUTO 4 % (0-6); Hematocrit 41.9 % (37.0-53.0); Hemoglobin 13.9 g/dL (13.5-17.5); IMMATURE GRAN ABSOLUTE AUTO 0.04 K/mm3 (0.00-0.10); IMMATURE GRAN PERCENT AUTO 1 % (0-1); LYMPHOCYTES ABSOLUTE AUTO 2.93 K/mm3 (0.84-5.20); LYMPHOCYTES PERCENT AUTO 43 % (21-46); MONOCYTES ABSOLUTE AUTO 0.58 K/mm3 (0.16-1.47); MONOCYTES PERCENT AUTO 8 % (4-13); Mean Corpuscular HGB 32.8 pg (26.0-34.0); Mean Corpuscular HGB Conc 33.2 g/dL (31.5-36.5); Mean Corpuscular Volume 99 fL (80-100); Mean Platelet Volume 10.3 fL (9.1-12.4); NEUTROPHILS ABSOLUTE AUTO 3.01 K/mm3 (1.96-9.15); NEUTROPHILS PERCENT AUTO 44 % (41-73); Platelet Count 224 K/mm3 (150-400); RDW Coefficient Variation 12.9 % (11.7-14.2); RDW Standard Deviation 46.6 fL (35.1-46.3); Red Blood Cell Count 4.24 M/mm3 (4.30-5.90); White Blood Cell Count 6.88 K/mm3 (4.00-11.30)
[2025-01-05 14:17] LABS: Valproic Acid 100.6 ug/mL (50.0-100.0)
[2025-01-05 14:20] LABS: Alanine Aminotransfer (ALT/SGP 24 U/L (12-78); Albumin, Blood 3.2 g/dL (3.4-5.0); Albumin/Globulin Ratio 0.8 (0.8-1.8); Alk Phos 58 U/L (50-136); Anion Gap 6 mmol/L (3-11); Aspartate Aminotrans (AST/SGOT 12 U/L (12-37); Bilirubin, Total 0.3 mg/dL (0.1-1.0); Blood Urea Nitrogen 11 mg/dL (8-24); Bun/Creatinine Ratio 14.7 (12.0-20.0); CO2, Blood 35 mmol/L (21-32); Calcium, Blood 8.9 mg/dL (8.5-10.1); Chloride, Blood 99 mmol/L (98-108); Creatinine, Blood 0.75 mg/dL (0.60-1.20); Globulin, Blood 3.8 g/dL (2.2-4.0); Glomerular Filtration Rate 102 (60-); Glucose, Blood 95 mg/dL (70-99); Potassium, Blood 4.8 mmol/L (3.5-5.5); Sodium, Blood 135 mmol/L (136-145)
== END ==
LOC: LAB SHORT 13:41 → LAB 13:41
PROVIDERS: Nurse Practitioner Psychiatric/Mental Health
DX: F81.9 Developmental disorder of scholastic skills, unspecified (principal); F39 Unspecified mood [affective] disorder; F42.2 Mixed obsessional thoughts and acts
CPT/HCPCS: 80053; 80164; 84443; 85025